=== PATIENT | male | born 1955 | race Caucasian/White ===

== ENCOUNTER 2017-03-29 23:25 | Emergency (ER) | payer BC ==
--- NOTE | ~2017-03-29 | EKG ---
PATIENT: SYLVESTER CLARK UNIT #: [id number] Ventricular Rate: 73 BPM Atrial Rate: 73 BPM P-R Interval: 174 ms QRS Duration: 84 ms Q-T Interval: 394 ms QTC Calculation(Bezet): 434 ms P Cherokee: 52 degrees Calculated R Cherokee: 29 degrees Calculated T Cherokee: 41 degrees Diagnosis Line: Normal sinus rhythm Diagnosis Line: Normal ECG Diagnosis Line: When compared with ECG of 30-MAR-2017 04:36, Diagnosis Line: (unconfirmed) Diagnosis Line: Criteria for Septal infarct are no longer Present Diagnosis Line: Confirmed by STEPHANIE VORA MD ([id number]) on Diagnosis Line: 03/30/2017 1:33:52 PM INTERPRETING MD: DIONY PHILLIPS
--- NOTE | ~2017-03-29 | CR72 ---
[facility] A Service of [facility] & [facility] RADIOLOGY TEXT RESULTS PATIENT: SYLVESTER CLARK LOCATION: [facility] : 57 UNIT #: [id number] AGE: [address]: Garcia Hilton DO SEX: M ORDER DR: [id number] [facility] [address] [place], [place] [address] [id number] MR#: [id number] Acc #: [id number] NAME: SYLVESTER CLARK : 1955 SEX: M STUDY DATE/TIME: 03/30/2017 04:41 UNIT: [facility] ROOM: STUDY DESCRIPTION: CR Chest Single View Portable Attending Physician: Garcia Hilton D.O. Ordering Physician: Garcia Hilton D.O. Primary Care Physician: Carlitos Dowling M.D. MEDICAL IMAGING REPORT This report is preliminary unless electronic signature is present EXAM Portable chest 03/30 at 0441. INDICATIONS Shortness of air and left side chest pain for 1-2 days. FINDINGS A single AP portable view of the chest shows both lungs to be clear. The heart is normal in size. The mediastinal contour is normal. No significant bone abnormalities are seen. IMPRESSION Normal portable chest. Dictated by... Jamaal Moreno Jr., M.D. THIS IS AN ELECTRONICALLY VERIFIED REPORT Jamaal Moreno Jr., M.D. at 03/30/2017 7:22 PM LINUS/dina TD: 03/30/2017 08:01 JOB #: [id number] MEDICAL IMAGING REPORT Page 1 of 1 COPY
--- NOTE | ~2017-03-29 | CT71 ---
[facility] Service of [facility] RADIOLOGY TEXT RESULTS PATIENT: SYLVESTER CLARK LOCATION: [facility] : 57 UNIT #: [id number] AGE: [address]: Garcia Hilton DO SEX: M ORDER DR: [id number] [facility] [address] [facility]. [place], [place] [address] [id number] E MR#: [id number] Acc #: [id number] NAME: SYLVESTER CLARK : 1955 SEX: M STUDY DATE/TIME: 03/30/2017 03:16 UNIT: [facility] ROOM: STUDY DESCRIPTION: CT Head Wo Contrast Attending Physician: Garcia Hilton D.O. Ordering Physician: Garcia Hilton D.O. Primary Care Physician: Carlitos Dowling M.D. MEDICAL IMAGING REPORT This report is preliminary unless electronic signature is present EXAM Head CT 03/30/2017 03:16 INDICATION Headache with visual changes for 1 day. No trauma. COMPARISON None. FINDINGS Axial images were obtained from the base to the vertex without contrast. This CT examination was performed with one or more of the following radiation dose reduction techniques: automatic exposure control, adjustment of mA and/or kV according to patient size, and iterative reconstruction. There is mild generalized atrophy. Ventricular size and configuration are within normal limits. Chronic small vessel ischemic changes are present in the white matter. No acute infarct or hemorrhage. No masses. No skull fractures. IMPRESSION No acute abnormality. Dictated by... Jamaal Moreno Jr., M.D. THIS IS AN ELECTRONICALLY VERIFIED REPORT Jamaal Moreno Jr., M.D. at 03/30/2017 7:22 PM LINUS/ramesh TD: 03/30/2017 07:54 JOB #: [id number] [facility] Service of [facility] RADIOLOGY TEXT RESULTS PATIENT: SYLVESTER CLARK LOCATION: [facility] : 57 UNIT #: [id number] AGE: [address]: Garcia Hilton DO SEX: M ORDER DR: MEDICAL IMAGING REPORT Page 1 of 1 COPY
[2017-03-30 02:21] LABS: BASOPHIL% 0.5 % (0-2.5); EOSINOPHIL% 0.4 % (0.0-7.0); HEMATOCRIT 48.2 % (38.0-50.0); HEMOGLOBIN 16.2 gm/dL (13.0-16.0); LYMPHOCYTE# 1.5 X10e3 (1.0-3.5); LYMPHOCYTE% 16.4 % (17.0-45.0); MEAN CELL VOLUME 91.4 FL (83-96); MEAN CORPUSCULAR HEMOGLOBIN 30.7 PG (28-34); MEAN CORPUSCULAR HGB CONC 33.7 g/dL (30-36); MEAN PLATELET VOLUME 7.9 FL (6.5-11.5); MONOCYTE# 0.5 X10e3 (0-1.0); MONOCYTE% 5.6 % (3.0-12.0); NEUTROPHIL% 77.1 % (40-75); PLATELET COUNT 249 X10e3 (140-420); RED BLOOD COUNT 5.28 X10e (3.90-5.60); RED CELL DISTRIBUTION WIDTH 12.7 % (11.0-15.5); WHITE BLOOD COUNT 9.1 X10e3 (4.0-10.5)
[2017-03-30 02:22] LABS: DIFF IND NO
[2017-03-30 02:43] LABS: ALBUMIN SERUM 4.5 g/dL (3.5-5.0); BILIRUBIN,TOTAL 0.9 mg/dL (0.2-2.0); CALCIUM SERUM 9.3 mg/dL (8.4-10.2); GLOM FILT RATE Estimated 81.5 mL/min (>60); POTASSIUM 4.2 mmol/L (3.5-5.1)
[2017-03-30 04:54] LABS: POC - CKMB 1.1 ng/mL (0.0-7.9); POC - TROPONIN <0.05 ng/mL (<=0.05)
[2017-03-30 04:55] LABS: POC - CKMB <1.0 ng/mL (0.0-7.9); POC - TROPONIN <0.05 ng/mL (<=0.05)
== END 2017-03-30 05:55 | disposition home or self-care (01) ==
LOC: CED 23:25 → CFTX 23:50 → CED 03-30 05:55
PROVIDERS: Emergency Medicine
DX: R51 Headache (principal); I10 Essential (primary) hypertension
CPT/HCPCS: 36415; 70450; 71010; 80053; 82553; 83880; 84484; 85025; 85652; 86140; 93005; 96374; 96375; 99285; J1100; J1200; J2765

== ENCOUNTER 2017-04-10 12:00 | Inpatient (IN) | payer BC ==
[~2017-04-10] VITALS: Ht 177.8 cm; Wt 60.3 kg
--- NOTE | ~2017-04-10 | PN ---
Unit #: [id number] #: [id number] Patient: JESUS GUNN [id number] [facility] [address] [place] [address] [id number] I MR#: [id number] NAME: JESUS GUNN ROOM: P261 Age: 61 Sex: M Admission Date: 04/10/2017 : 1955 Attending Physician: Apolinar Mcfarlane M.D. Admitting Physician: Apolinar Mcfarlane M.D. Primary Care Physician: Darci Holly PROGRESS NOTES DATE 04/17/2017 DISCUSSION Jesus continues to appear ill. He has decreased oral intake and appears a little unsteady on his feet today. It is difficult to assess his mood due to his soft and mumbled speech. Vital signs are also mildly decreased this morning. Later in the day, the patient's condition continued to deteriorate and I felt it was inappropriate for him to remain here, feeling that he had developed a medical condition that required further intervention. ASSESSMENT Major depression with psychotic features. PLAN The patient was transferred to [facility] for medical evaluation. Dictated by... Apolinar Mcfarlane M.D. [facility]/dzh TD: 04/19/2017 18:02 JOB #: [id number] [facility] PROGRESS NOTES Page 1 of 1 X Apolinar Mcfarlane MD X PROGRESS NOTE
--- NOTE | ~2017-04-10 | PN ---
Unit #: [id number] #: [id number] Patient: JESUS GUNN [id number] [facility] [address] [place] [address] [id number] I MR#: [id number] NAME: JESUS GUNN ROOM: P261 Age: 61 Sex: M Admission Date: 04/10/2017 : 1955 Attending Physician: Apolinar Mcfarlane M.D. Admitting Physician: Apolinar Mcfarlane M.D. Primary Care Physician: Darci Holly PROGRESS NOTES DATE 04/15/2017 DISCUSSION Jesus is sitting quietly in the dayroom this morning. He appears mildly confused and his speech is soft and mumbled. He is alert and fully oriented and he appears to be mildly confused or psychotic. ASSESSMENT Major impression with psychotic features. PLAN Will continue to closely monitor the patient and treat as appropriate. Dictated by... Darci BanksH/dzh TD: 04/19/2017 22:25 JOB #: [id number] [facility] PROGRESS NOTES Page 1 of 1 X Apolinar Mcfarlane MD X PROGRESS NOTE
--- NOTE | ~2017-04-10 | PA ---
Unit #: [id number] #: [id number] Patient: JESUS CLARK [id number] [place] [address] [id number] I MR#: [id number] NAME: JESUS CLARK. ROOM: P261 Age: 61 Sex: M Admission Date: 04/10/2017 : 1955 Date of Assessment: 04/11/2017 Attending Physician: Apolinar Mcfarlane M.D. Admitting Physician: Apolinar Mcfarlane M.D. Primary Care Physician: Carlitos Dowling M.D. PSYCHIATRIC ASSESSMENT DATE OF SERVICE 04/11/2017. INFORMANTS The patient, reliable; OLOP, reliable. CHIEF COMPLAINT Psychosis. HISTORY OF PRESENT ILLNESS Jesus is a 61-year-old man, whose family reported that a week ago he began to believe that he is liable to arrest, that his bank account was frozen, that he has been increasingly hopeless and helpless, and said the police are coming after him for unknown reasons. He has been depressed, but this is the first time he has spoken of psychiatric symptoms in this way. He made plans for his demise with family members and their concern brought him to the hospital where he has been admitted for stabilization. PAST PSYCHIATRIC HISTORY Family denies any previous inpatient psychiatric treatment or outpatient care. He is not currently taking psychiatric medications. FAMILY PSYCHIATRIC HISTORY The patient's maternal grandmother was admitted to this facility as well as 2 of aunts, they also received electroconvulsive therapy. He reports that mental illness runs on both sides of his family. He denies any history of chemical dependence in his family. SOCIAL HISTORY The patient denies any history of childhood abuse or neglect. He is a heterosexual man with no current legal issues despite his assertions. He is a high-school graduate, who has worked as a instructional technology teacher and has no problems related to the job. He reported that his mother recently and they sold her home about 6 weeks ago. PAST MEDICAL HISTORY Significant for hypertension, mitral valve prolapse, and history of elevated liver enzymes. MEDICATIONS Please see MAR. ALLERGIES Unit #: [id number] #: [id number] Patient: JESUS CLARK No known medication allergies. SUBSTANCE USE HISTORY None reported. MENTAL STATUS EXAMINATION Jesus presented as a thin man, who appeared older than his stated age. He was quiet, but cooperative with the examination. His speech was soft, sparse, and occasionally hard to understand. Musculoskeletal examination was calm. His mood was depressed with a decreased range of affect. He was alert and fully oriented. His memory and concentration were intact. His thought processes were logical, but he appears to be somewhat paranoid and may be responding to internal stimuli that he would not admit. He continues to report suicidal ideation with no specific plan or intent. Insight and judgment, fair. Fund of knowledge and abstraction, fair. ASSETS AND LIABILITIES The patient knows local resources, has supportive family, and is voluntary for treatment. Liabilities include lack of current treatment, plan for psychiatric illness, and sudden change of mental status. ADMITTING DIAGNOSES AXIS I: Major depression with psychotic features, F33.3. AXIS II: No diagnosis. AXIS III: Hypertension, report of "pancreatitis." AXIS IV: AXIS V: PSYCHIATRIC PLAN The patient was admitted and placed on suicide precautions. We will add Zyprexa with an increased dose of 10 mg at bedtime for psychosis and we will begin antidepressant treatment with Zoloft 50 mg daily. His medical conditions will be determined by outpatient pharmacy and medications continued. He will enroll in dual diagnosis of groups and activities. A physical examination and laboratory studies will be ordered and reviewed. TREATMENT GOALS Resolution of SI, improvement in mood, improvement in insight, and improvement in coping skills. DISCHARGE PLANNING Follow up with primary care physician and community mental health. ESTIMATED LENGTH OF STAY 5 days. Dictated by... Apolinar Mcfarlane M.D. YA/swathi TD: 04/13/2017 05:51 JOB #: [id number] Unit #: [id number] #: [id number] Patient: JESUS CLARK PSYCHIATRIC ASSESSMENT Page 1 of 1 X Apolinar Mcfarlane MD PSYCHIATRIC ASSESSMENT
--- NOTE | ~2017-04-10 | HP ---
Unit #: [id number] #: [id number] Patient: JESUS CLARK [id number] [place] [address] [id number] I MR#: [id number] NAME: JESUS CLARK. ROOM: 61 Age: 61 Sex: M Admission Date: 04/10/2017 : 1955 Attending Physician: Apolinar Mcfarlane M.D. Admitting Physician: Apolinar Mcfarlane M.D. Primary Care Physician: Carlitos Dowling M.D. HISTORY AND PHYSICAL HISTORY OF PRESENT ILLNESS Jesus is a 61 year old admitted to [address] [place] [address] with psychotic behavior. Patient's reports that he has been observed talking to external stimuli. He is a poor historian so his history is taken from his chart. PAST MEDICAL HISTORY High blood pressure. PAST SURGICAL HISTORY Nothing reported. ALLERGIES No known drug allergies. SOCIAL HISTORY He denies cigarettes, alcohol and illicit drug use. FAMILY HISTORY Medically noncontributory. REVIEW OF SYSTEMS He does not answer questions appropriately. There are no reports of nausea, vomiting or diarrhea. He has had no cough or increased temperature. CURRENT MEDICATIONS 1. Zyprexa 5 mg q h.s. 2. Milk of Magnesia p.r.n. 3. Maalox p.r.n. 4. Tylenol p.r.n. 5. Inderal 20 mg t.i.d. 6. Protonix 40 mg q day 7. HCTZ 12.5 mg q day 8. Zestril 10 mg q day PHYSICAL EXAMINATION GENERAL: Alert, well-nourished, in no apparent distress. VITAL SIGNS: Blood pressure 150/98, heart rate 80, respirations 16, temperature 98.6. WEIGHT: 133 pounds. HEIGHT: 5'10". SKIN: Warm and dry without rash or lesion. Unit #: [id number] #: [id number] Patient: JESUS CLARK HEENT: Normocephalic. TMs not viewed. Oral and nasal passages clear. Conjunctivae clear. Pupils equal, round and reactive to light and accommodation. Extraocular movements intact. NECK: Supple without lymphadenopathy or thyromegaly. HEART: Regular rate and rhythm without murmur. LUNGS: Clear. ABDOMEN: Soft, nontender. : Not done. EXTREMITIES: No evidence of cyanosis, clubbing or edema. Moves all extremities without focal deficit. NEUROLOGICAL: Grossly within normal limits. Cranial Nerves: II: Visual winston are intact. III, IV AND : Extraocular movements are intact. Pupils are equal, round and reactive to light. V: Facial sensation is grossly normal. VII: Facial movements and expression are normal. VIII: Auditory acuity grossly intact. IX, X: Uvula is midline. Phonation is normal. XI: Patient shrugs shoulders and turns head normally. XII: Tongue protrudes in the midline. Sensory and Motor Function: Sensory and motor sensation is grossly normal. Motor: moves all extremities well. Coordination: Gait is normal. Deep Tendon Reflexes: Intact. IMPRESSION 1. Psychiatric admission. 2. High blood pressure, not controlled on admission. 3. The patient is very thin for his height. RECOMMENDATIONS PSYCHIATRIC: Per psychiatrist. MEDICAL: 1. I see no contraindications to participating in facility's activities. 2. Continue HCTZ and Zestril. 3. Ensure 1 bottle with each meal and at bedtime. MEDICAL PROGNOSIS Good. MEDICAL CONDITION Stable. Dictated by... Kasey Han/alex TD: 04/11/2017 04:20 JOB #: [id number] Unit #: [id number] #: [id number] Patient: JESUS CLARK HISTORY AND PHYSICAL Page 1 of 1 X Carolina Tolliver X HISTORY AND PHYSICAL
--- NOTE | ~2017-04-10 | A ---
[facility] Nutrition Therapy DATE: 04/12/17 Patient: SYLVESTER ROJASPEDRO Physician: GARY Address: [address] Room/Bed: [address], Zip: [place] [address] Admit Date: 04/10/17 Date of : [birth year] Height: 5 10 Weight: 132 60.250438 NUTRITIONAL ASSESSMENT: REASON: CONSULT "PATIENT IS UNDERWEIGHT" PATIENT ADMITED FOR SI, DEPRESSION, ANXIETY, PSYCHOTIC BEHAVIORS PMH: HTN, GERD Anthropometrics: HT: 70", WT: 133#, BMI: 19.1 Labs: 04/11/17- NA: 130 ALL OTHER NUTRITIONAL LABS WNL Meds: ZOLOFT, ZYPREXA, CREON, PROTONIX, HCTZ, ZESTRIL Assessment: PATIENT IS A 61 Y/O MALE ADMITTED FOR SI, DEPRESSION, ANXIETY, AND PSYCHOTIC BEHAVIORS. PATIENT IS CURRENTLY EMPLOYED, LIVES WITH HIS , AND DENIES ANY SUBSTANCE ABUSE. PER MD NOTES, PATIENT IS A POOR HISTORIAN AND HE DOES NOT ANSWER QUESTIONS APPROPRIATELY. UPON ADMIT PATIENT STATED A POOR APPETITE/NOT EATING, WITH A 16# WEIGHT LOSS OVER LAST 2-3 MONTHS, AND HE IS NOT SLEEPING (2-3 HOURS/NIGHT). WEIGHT HX PER [facility] SHOWS A WEIGHT OF 137# ON 03/29/17, WHICH IS A 4# WEIGHT LOSS X 2 WEEKS. NURSING REPORTS PATIENT HAS SOME C/O CONSTIPATION, HE HAS COME OUT OF HIS ROOM FOR MEALS, HE HAS AN ADEQUATE APPETITE, AND HE HAS REQUESTED EXTRA SNACKS AT TIMES. CURRENT PSYCH MEDS AND HCTZ MAY CAUSE WEIGHT AND APPETITE FLUCTUATIONS. THERE IS NO SKIN BREAKDOWN NOTED ATT. PATIENT'S BMI IS WITHIN A HEALTHY RANGE OF 19-25, HOWEVER HE IS 80% OF IS IBW. PATIENT IS ON A REGULAR DIET AND MD ORDERED ENSURE WITH ALL MEALS AND AT BEDTIME. PATIENT DID NOT SCORE ANY NUTRITIONAL RISK POINTS. Dx: INADEQUATE NUTRIENT INTAKE R/T CURRENT CONDITION, PSYCHOSIS AEB SELF-REPORTED WEIGHT LOSS AND DECREASED APPETITE, <90% IBW Intervention: REGULAR DIET, ENSURE QID, MEDS PER MD, PSYCH Monitoring, Evaluation and Goals: 1. ADEQUATE PO INTAKES >50% OF MEALS 2. PREVENT, CORRECT MICRO/MACRO NUTRIENT DEFICIENCIES 3. WEIGHT; PREVENT FURTHER WEIGHT LOSS MONITOR: WEIGHTS, LABS, PO/FLUID INTAKES Recommendations: 1. CONTINUE REGULAR DIET AND ENSURE QID TOLERATED. OFFER SNACKS BETWEEN MEALS [facility] Nutrition Therapy DATE: 04/12/17 Patient: SYLVESTER CLARK Physician: GARY Address: [address] Room/Bed: P261-[address] [facility], Zip: [place] [address] Admit Date: 04/10/17 Date of : [birth year] Height: 5 10 Weight: 132 60.858509 2. ENCOURAGE ADEQUATE KCAL AND PROTEIN INTAKES 3. WEIGH PATIENT ROUTINELY (EVERY 3-4 DAYS) 4. WILL CONTINUE TO MONITOR WEIGHT AND PO INTAKES RD TO F/U PER PROTOCOL AND PRN R/T PATIENT MILDLY COMPROMISED Respectfully, NATALIA HURTADO, PRO, LD [facility] cc: client file
--- NOTE | ~2017-04-10 | DS ---
Unit #: [id number] #: [id number] Patient: JESUS GUNN [id number] [facility] [address] [place] [address] [id number] MR#: [id number] NAME: JESUS GUNN ROOM: P261 Age: 61 Sex: M Admission Date: 04/10/2017 : 1955 Discharge Date: 04/17/2017 Attending Physician: Apolinar Mcfarlane M.D. Primary Care Physician: Carlitos Dowling M.D. DISCHARGE SUMMARY REASON FOR ADMISSION Jesus is a 61-year-old man, whose family reports that about a week ago, he began acting "strange" with paranoia, decreased affective range, thoughts of hopelessness and helplessness, and talk of dying. He was admitted for stabilization. DIAGNOSTIC STUDIES LABORATORY RESULTS: Please see hospital chart. HOSPITAL COURSE Jesus was admitted and placed on suicide precautions. He appeared somewhat ill and cachectic, but initial tests for pancreatitis and other conditions were unremarkable. He started on an antidepressant and antipsychotic medications, as he appeared to have some psychotic features to his depression. He participated as he could in unit groups and activities, but appeared to have some confusion at times. During my assessment on 04/17, the patient appeared increasingly ill and had difficulty standing appropriately. Vital signs were decreased and staff noted that the patient also had decreased oral intake for both fluids and food. A referral was made to [facility], where the patient was seen in the emergency room and determined to have some clinical dehydration. He was therefore admitted to that facility and discharged from [facility]. 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 AXIS II: No diagnosis. AXIS III: Acute dehydration and history of pancreatitis. AXIS IV: AXIS V: DISCHARGE INSTRUCTIONS The patient is to follow up with attending physician at [facility]. DISCHARGE MEDICATIONS No prescriptions were written due to the emergency nature of the patient's discharge. CONDITION AT DISCHARGE Unit #: [id number] #: [id number] Patient: JESUS GUNN Decompensated. PROGNOSIS Good. DIET AND ACTIVITY Per attending physician. Dictated by... Apolinar Mcfarlane M.D. [facility]/modl TD: 04/19/2017 09:37 JOB #: [id number] DISCHARGE SUMMARY Page 1 of 1 X Apolinar Mcfarlane MD DISCHARGE SUMMARY
[2017-04-11 09:43] LABS: BASOPHIL% 0.2 % (0-2.5); EOSINOPHIL% 0.4 % (0.0-7.0); HEMATOCRIT 43.3 % (38.0-50.0); HEMOGLOBIN 15.1 gm/dL (13.0-16.0); LYMPHOCYTE% 9.8 % (17.0-45.0); MEAN CELL VOLUME 89.4 FL (83-96); MEAN CORPUSCULAR HEMOGLOBIN 31.2 PG (28-34); MEAN CORPUSCULAR HGB CONC 34.9 g/dL (30-36); MEAN PLATELET VOLUME 8.1 FL (6.5-11.5); MONOCYTE# 1.2 X10e3 (0-1.0); MONOCYTE% 10.9 % (3.0-12.0); NEUTROPHIL# 8.4 X10e3 (1.5-7.1); NEUTROPHIL% 78.7 % (40-75); PLATELET COUNT 280 X10e3 (140-420); RED BLOOD COUNT 4.84 X10e (3.90-5.60); WHITE BLOOD COUNT 10.7 X10e3 (4.0-10.5)
[2017-04-11 09:53] LABS: DIFF IND NO
[2017-04-11 10:54] LABS: ALBUMIN SERUM 4.1 g/dL (3.5-5.0); BILIRUBIN,TOTAL 1.2 mg/dL (0.2-2.0); BUN/CREATININE RATIO 13.63; CALCIUM SERUM 9.8 mg/dL (8.4-10.2); CREATININE SERUM 1.1 mg/dL (0.6-1.4); GLOM FILT RATE Estimated 72.6 mL/min (>60); POTASSIUM 4.2 mmol/L (3.5-5.1); PROTEIN TOTAL SERUM 7.1 g/dL (6.0-8.3)
[2017-04-12 09:51] LABS: AMYLASE 51 U/L (0-46); LIPASE 32 U/L (22-51)
[2017-04-14 09:41] LABS: URINE APPEARANCE CLEAR; URINE BILIRUBIN NEG (NEG); URINE BLOOD NEG (NEG); URINE COLOR YELLOW; URINE GLUCOSE NEG (NEG); URINE KETONE TRACE (NEG); URINE LEUKOCYTE ESTERASE NEG (NEG); URINE NITRATE NEG (NEG); URINE PROTEIN NEG (NEG); URINE UROBILINOGEN 0.2 MG/DL (NEG)
[2017-04-14 10:32] LABS: AMPHETAMINE NEG (NEG); BARBITURATES NEG (NEG); BENZODIAZEPINES NEG (NEG); COCAINE NEG (NEG); MARIJUANA NEG (NEG); OPIATES NEG (NEG); TRICYCLIC ANTIDEPRESSANTS NEG (NEG); U METHADONE NEG (NEG)
[2017-04-17] MEDS ORDERED: ZESTRIL10 M1 PO (22:54)
[2017-04-17] MEDS ORDERED: INDERAL20 MG PO (22:54)
[2017-04-17] MEDS ORDERED: HCTZ PO (22:55)
[2017-04-17] MEDS ORDERED: PROTONIX40 M1 PO (22:55)
[2017-04-17] MEDS ORDERED: CREON DR 12,001 EAC2 PO (22:56)
[2017-04-17] MEDS ORDERED: ZYPREXA10 MG PO (22:56)
[2017-04-17] MEDS ORDERED: ZOLOFT100 MG PO (22:57)
== END 2017-04-17 22:30 | DRG 885 ==
LOC: P2L 15:37
PROVIDERS: Psychiatry & Neurology Psychiatry
DX: F33.3 Major depressive disorder, recurrent, severe with psychotic symptoms (principal); I10 Essential (primary) hypertension; I34.1 Nonrheumatic mitral (valve) prolapse
CPT/HCPCS: 80053; 80307; 81003; 82150; 83690; 85025

== ENCOUNTER 2017-04-17 16:27 | Inpatient (IN) | payer BC ==
[~2017-04-17] VITALS: Ht 177.8 cm; Wt 59.2 kg
--- NOTE | ~2017-04-17 | FU ---
[facility] Nutrition Therapy DATE: 04/27/17 Patient: SYLVESTER Hanna JAIMEURE Physician: ANA Address: [address] Room/Bed: [address] [place] [address], Zip: [place] [address] Admit Date: 04/17/17 Date of : [birth year] Height: 5 10 Weight: 138 62.6 NUTRITION MONITORING/FOLLOW-UP: Reason: PT SEEN FOR FOLLOW-UP DX: DEHYDRATION, ABD PAIN, ANOREXIA Anthropometrics: 5'10", WT: 138# (62.7 KG), BMI: 17.7 -ADMIT WEIGHT: 125# (56.8 KG) Labs: CA+:7.7, ALB: 1.8 (04/20/17) Meds: REMERON, KCL, PROTONIX, THIAMINE, THERAPEUTIC FORMULA, CREON 12, ZOFRAN, MIRALAX I&O's: 6080/1990 Skin: (R) FOOT ABSCESS-PREVIOUSLY NOTED Assessment: CHART REVIEWED AND EVENTS NOTED. PT SEEN FOR FOLLOW-UP. PT REPORTS FAIR PO INTAKE AND APPETITE. PT STATES HE SKIPPED BREAKFAST 2' "NOT BEING HUNGRY" BUT NOTED EATING 100% DINNER LAST NIGHT, ADDS "MY APPETITE COMES AND GOES". OF NOTE, PT TO HAVE A FLAT AFFECT AND SAD MOOD. THIS RD ENCOURAGED ADEQUATE KCAL AND PROTEIN INTAKE, PT AGREED AND NOTES HE DRINKS ENSURE SHAKES HERE AT [facility]. PT REPORTED NO DIET QUESTIONS AT THIS VISIT. RD TO CONTINUE TO FOLLOW. Dx: UNINTENTIONAL WEIGHT LOSS R/T DECREASED PO INTAKE & APPETITE, ABD DISCOMFORT, PMH AEB PT REPORT, NOTING 12.5% SEVERE WEIGHT LOSS IN PAST 2-3 MONTHS (16#), LOW BMI (17.9), 75%IBW, PT APPEARING CACHECTIC.-ACTIVE Intervention: 1. REGULAR DIET + 6 SMALL MEALS 2. ENSURE SHAKES TID Monitoring, Evaluation and Goals: 1. ORAL INTAKE; CONSUME/TOLERATE >50% OF MEALS AND SUPPLEMENTS-IN PROGRESS 2. WEIGHTS; PROMOTE GRADUAL WEIGHT GAIN; PREVENT WEIGHT LOSS-IN PROGRESS 3. LABS; WNL-MET/IN PROGRESS 4. SKIN; PROMOTE SKIN HEALING-IN PROGRESS MONITOR: -PO INTAKE/APPETITE -WEIGHTS -SUPPLEMENT INTAKE Recommendations: 1. APPRECIATE FAMILY AND STAFF TO CONTINUE TO ENCOURAGE ADEQUATE PO INTAKE [facility] DATE: 04/27/17 Patient: SYLVESTER Hanna LUIS A Physician: ANA Address: [address] Room/Bed: [address] [place] [address], Zip: [place] [address] Admit Date: 04/17/17 Date of : [birth year] Height: 5 10 Weight: 138 62.6 2. CONTINUE OBTAINING WEIGHTS q 3 DAYS FOR MONITORING PURPOSES RD WILL F/U PER PROTOCOL PT IS MODERATELY COMPROMISED Respectfully, CORBY RODRIGUEZ MS, RD, LD [facility] Nutrition[facility] cc: client file
--- NOTE | ~2017-04-17 | CR142 ---
[facility] A Service of [facility] & [facility] RADIOLOGY TEXT RESULTS PATIENT: SYLVESTER GUNN LOCATION: [place] [address] : 57 UNIT #: [id number] AGE: [address]: MARK WARNER V SEX: M ORDER DR: [id number] [facility] [address] [facility]. [place], [place] [address] [id number] I MR#: [id number] Acc #: [id number] NAME: SYLVESTER GUNN : 1955 SEX: M STUDY DATE/TIME: 04/24/2017 12:06 UNIT: [facility] ROOM: [facility] STUDY DESCRIPTION: CR Hand Min 3 Views Rt Attending Physician: Mark Warner M.D. Ordering Physician: Mark Warner M.D. Primary Care Physician: Carlitos Dowling M.D. MEDICAL IMAGING REPORT This report is preliminary unless electronic signature is present EXAM Right hand 3 views, 04/24/2017 1206 hours HISTORY Pain and swelling of the right hand and wrist for 1 day. No known injury. COMPARISON None. FINDINGS AP, lateral and oblique views demonstrate dorsal soft tissue swelling over the carpal bones and metacarpals. There is no fracture, dislocation or foreign body. IMPRESSION Dorsal soft tissue swelling over the carpus and metacarpals. No fracture, dislocation or foreign body seen. Dictated by... Razia Montgomery M.D. THIS IS AN ELECTRONICALLY VERIFIED REPORT Razia Montgomery M.D. at 04/25/2017 9:11 AM GUILLERMO/gloria TD: 04/24/2017 21:42 JOB #: [id number] MEDICAL IMAGING REPORT Page 1 of 1 COPY
--- NOTE | ~2017-04-17 | CR282 ---
[facility] A Service of [facility] RADIOLOGY TEXT RESULTS PATIENT: SYLVESTER GUNN LOCATION: [place] [address] : 57 UNIT #: [id number] AGE: [address]: MARK WARNER V SEX: M ORDER DR: [id number] [place] [id number] [facility]. [place], [place] [address] [id number] I MR#: [id number] Acc #: [id number] NAME: SYLVESTER GUNN : 1955 SEX: M STUDY DATE/TIME: UNIT: [facility] ROOM: [facility] STUDY DESCRIPTION: CR Wrist Min 3 View Rt Attending Physician: Mark Warner M.D. Ordering Physician: Mark Warner M.D. Primary Care Physician: Carlitos Dowling M.D. MEDICAL IMAGING REPORT This report is preliminary unless electronic signature is present EXAM Right wrist 3 views 04/24/2017 1205 hours HISTORY Patient complains of 1-day history of pain and swelling of the right hand and wrist. No known injury. FINDINGS AP, lateral and oblique views of the wrist demonstrate mild diffuse soft tissue swelling over the hand and wrist with no fracture, dislocation or foreign body. IMPRESSION Diffuse soft tissue swelling with no fracture, dislocation or foreign body. Dictated by... Razia Montgomery M.D. THIS IS AN ELECTRONICALLY VERIFIED REPORT Razia Montgomery M.D. at 04/25/2017 9:11 AM GUILLERMO/trav TD: 04/24/2017 22:02 JOB #: [id number] MEDICAL IMAGING REPORT Page 1 of 1 COPY
--- NOTE | ~2017-04-17 | EKG ---
PATIENT: SYLVESTER GUNN UNIT #: [id number] Ventricular Rate: 70 BPM Atrial Rate: 70 BPM P-R Interval: 172 ms QRS Duration: 88 ms Q-T Interval: 408 ms QTC Calculation(Bezet): 440 ms P [place]: 57 degrees Calculated R [place]: 51 degrees Calculated T [place]: 48 degrees Diagnosis Line: Normal sinus rhythm Diagnosis Line: Normal ECG Diagnosis Line: When compared with ECG of 27-APR-2017 18:27, Diagnosis Line: (unconfirmed) Diagnosis Line: No significant change was found Diagnosis Line: Confirmed by RAIN RIVERA MD ([id number]) on 04/28/2017 Diagnosis Line: 5:15:00 PM INTERPRETING MD: NICOLE PHILLIPS
--- NOTE | ~2017-04-17 | CO ---
Unit #: [id number] #: [id number] Patient: SYLVESTER ABBOTT [id number] [address] [address] [id number] I MR#: [id number] NAME: SYLVESTER ABBOTT ROOM: 557 Age: 61 Sex: M Admission Date: 04/17/2017 : 1955 Attending Physician: Sang Orozco M.D. Primary Care Physician: Carlitos Dowling M.D. Consultation Date: 04/18/2017 CONSULTATION REPORT REASON FOR CONSULTATION Acute kidney injury. HISTORY OF PRESENT ILLNESS Mr. Abbott is a pleasant, but depressed, 61-year-old male who we were asked to see for acute kidney injury. The patient was admitted to [facility] on 04/10/2017 with relatively normal appearing kidney function and had been treated there for major depressive disorder with some psychosis. The patient was transferred over to [facility] because of generalized weakness and anorexia. There was a concern about poor p.o. intake and weight loss. The patient had repeat blood work in the emergency room that showed acute kidney injury, prompting our consultation today. The patient states that he has just not been hungry. He has had some nausea, but no real vomiting or diarrhea. His CT scan that was done did show some urine retention, but bladder scan on the floor thus far has been negative after voiding. The patient denies the use of any NSAIDs at home. He has no history of kidney stones. No swelling. He denies any urinary complaints. He has had positive blood cultures with questionable source as he has not been otherwise symptomatic. PAST MEDICAL HISTORY 1. Major depressive disorder with psychosis. 2. Hypertension. 3. Mitral valve prolapse. 4. History of pancreatitis. 5. Elevated liver function tests. PAST SURGICAL HISTORY 1. Appendectomy. 2. Varicocele. SOCIAL HISTORY The patient is . He is a former smoker. He used to drink alcohol on the weekends. No drug use. FAMILY HISTORY Significant for depression and psychiatric disease with electroshock therapy. No family history of kidney failure. He says his mother did have to have a kidney removed for unclear reasons. ALLERGIES No known drug allergies. HOME MEDICATIONS Unit #: [id number] #: [id number] Patient: SYLVESTER ABBOTT 1. Propranolol 20 mg t.i.d. 2. Lisinopril 10 mg daily. 3. HCTZ 12.5 mg daily. 4. Protonix 40 mg daily. 5. Zyprexa 10 mg at bedtime. 6. Creon 2 tablets t.i.d. 7. Zoloft 100 mg daily. 8. P.r.n. medications. REVIEW OF SYSTEMS A complete 12-point review of systems was attempted, but made difficult due to his depression and general fatigue and quietness. He denies any headaches or dizziness. I do not see any documented fevers or chills. No nose bleed or sore throat. No earache. Denies chest pain or palpitations. No cough or hemoptysis. No bright red blood per rectum or melena. No dysuria or hematuria. No swelling. No rashes. No itching. No flank pain. No night sweats or hot flashes. No intolerance to heat or cold. No bleeding issues. He has lost weight. Denies pain issues. Unless otherwise indicated, review of systems was negative. PHYSICAL EXAMINATION GENERAL: This is a pleasant 61-year-old male, very quiet with a flat affect and no acute distress. VITALS: Afebrile, pulse 97, respiratory rate 16, blood pressure 165/89, has been as high as 181/81 today. HEENT: Head is atraumatic, normocephalic. Eyes show pink conjunctivae with no scleral icterus. No nasal drainage. No nose bleed. Oropharynx is slightly dry. No thrush. NECK: No rigidity. No jugular venous distension. LUNGS: Clear with no wheezing or rhonchi. Breathing is nonlabored. HEART: Regular rate and rhythm with no murmur or rub appreciated. ABDOMEN: Thin and soft. There are bowel sounds present. No masses appreciated. EXTREMITIES: No lower extremity cyanosis or pitting edema. SKIN: Dry without rashes. MUSCULOSKELETAL: No joint effusions noted. No CVA tenderness to palpation. NEUROLOGIC: Cranial nerves are grossly intact with some mild generalized weakness without focal deficit. LYMPH: There is no neck, cervical lymphadenopathy. PSYCHIATRIC: Mood appears depressed. He does have a flat affect. DIAGNOSTIC STUDIES IMAGING: Chest x-ray done showed no active disease. CT of the head was done with some mild generalized atrophy. No acute changes. CT of the abdomen and pelvis was done this morning without contrast. It showed some mild perinephric stranding, otherwise kidneys were unremarkable. No acute findings. The bladder was distended. LABORATORY: TSH was normal. C-reactive protein was high at 20. Blood cultures from last night showed 2 out of 2 sets with gram positive cocci in clusters. Troponin was negative. Urinalysis yesterday showed 1+ protein, no blood, with some hyaline casts. Ammonia was normal. Lactic acid level was normal. CPK normal. Admission chemistry yesterday showed a sodium of 134, potassium 3.8, chloride 98, bicarb 27, glucose 118, BUN Unit #: [id number] #: [id number] Patient: SYLVESTER ABBOTT 78, creatinine 1.6. AST and ALT high at 48 and 57 respectively. CBC showed a white blood cell count of 21,000, hemoglobin 11.9, platelet count 293 with a left shift and no peripheral eosinophilia. Urine drug screen at [facility] was negative. [facility]inalysis at [facility]. They did draw a creatinine on the which was normal at 1.1, which looks to be his baseline. ASSESSMENT/PLAN 1. Acute kidney injury. This looks to be prerenal in nature from possible dehydration. Had altered renal compensation on his SHERI inhibitor. Both his hydrochlorothiazide and lisinopril were held. He is getting fluids. Certainly, if he does have some sepsis this may be playing a prerenal role as well. He has been started on antibiotics. We will continue with bladder scans and I have instructed the nursing staff that if his residual urine is greater than 300 cc to go ahead and place a Calix catheter tonight. 2. Hypertension. The patient is now only on propranolol with intermittent elevated readings. I will add some p.r.n. clonidine. 3. Urinary retention with bladder scans ordered and Calix as needed. 4. Bacteremia on Zyvox at this time. Source is unclear and I will order a two-dimensional echo. 5. History of pancreatitis. 6. Depression with psychosis. He will need psychiatry to see here. Would like to thank Dr. Orozco for this consult and the opportunity to participate in the evaluation and care of Mr. Abbott. Dictated by... Stephen Kilpatrick Jr., M.D. KYLIE/angel TD: 04/19/2017 09:10 JOB #: [id number] CONSULTATION REPORT Page 1 of 1 X Stephen Kilpatrick MD CONSULTATION REPORT
--- NOTE | ~2017-04-17 | OR ---
Unit #: [id number] #: [id number] Patient: SYLVESTER GUNN [id number] [address] [place], [place] [address] [id number] Liza MR#: [id number] NAME: SYLVESTER GUNN. ROOM: 55 Date of Procedure: 04/23/2017 Admission Date: 04/17/2017 Surgeon: Scott James M.D. : 1955 Attending Physician: Sang Orozco M.D. Primary Care Physician: Carlitos Dowling M.D. OPERATIVE REPORT PREOPERATIVE DIAGNOSIS Right dorsolateral forefoot subcutaneous abscess. POSTOPERATIVE DIAGNOSIS Right dorsolateral forefoot subcutaneous abscess. PROCEDURE PERFORMED Right foot subcutaneous abscess incision and drainage (). SPEECH LANGUAGE PATHOLOGIST PRN None. ANESTHESIA General. INDICATIONS FOR SURGERY The patient is a 61-year-old male with history of pancreatitis and MRSA sepsis, improving by blood culture, who now presents with swollen red dorsolateral forefoot. CT scan documents a subcutaneous abscess without bony involvement. The patient will therefore undergo I and D of this abscess as this is the only source of his sepsis. DESCRIPTION OF PROCEDURE The patient was taken to the operating room and placed in supine position. General anesthetic was induced. The right foot was identified as the correct operative location during the time-out procedure. The IV antibiotic protocol was not followed because he was on preoperative IV antibiotics. The right foot was then prepped and draped in the usual sterile fashion. The foot was exsanguinated with gravity and the thigh tourniquet inflated to 250 mmHg. A 3 cm dorsolateral longitudinal incision was made over the fifth metatarsophalangeal joint. The subcutaneous tissue was carefully divided until the abscess cavity was entered. There was cloudy fluid in the cavity and this was cultured for aerobic and anaerobic bacteria. There was no extension into the joint. The wound was copiously irrigated with 1 L of normal saline. The wound was then packed open with Betadine-soaked 1-inch roll gauze. A sterile dressing was applied with 4x4s, Kerlix, and an Fabiano wrap. The patient was then transported to the recovery room in stable condition. ESTIMATED BLOOD LOSS None. Unit #: [id number] #: [id number] Patient: SYLVESTER GUNN COMPLICATIONS None. SPECIMENS Aerobic and anaerobic culture and sensitivity. TOURNIQUET TIME 10 minutes. PLAN The patient will be allowed to weightbear as tolerated in his postoperative shoe. He well continue IV antibiotics until his sepsis resolves and his white blood cell count normalizes as he will follow up with me in the office in 7 days for wound check. Daily wet-to-dry dressings will be instituted using half strength Dakin solution. Dictated by.Darci Darnell/swathi TD: 04/23/2017 12:17 JOB #: [id number] OPERATIVE REPORT Page 1 of 1 X Arnol James MD X PROCEDURE OPERATIVE NOTE
--- NOTE | ~2017-04-17 | CR72 ---
[facility] A Service of [facility] RADIOLOGY TEXT RESULTS PATIENT: SYLVESTER GUNN LOCATION: [facility] : 56 UNIT #: [id number] AGE: [address]: MARK WARNER V SEX: M ORDER DR: [id number] [facility] [address] [place], [place] [address] [id number] I MR#: [id number] Acc #: [id number] NAME: SYLVESTER GUNN. : 1955 SEX: M STUDY DATE/TIME: 04/27/2017 10:33 UNIT: [facility] ROOM: [facility] STUDY DESCRIPTION: CR Chest Single View Portable Attending Physician: Mark Warner M.D. Ordering Physician: Mark Warner M.D. Primary Care Physician: Carlitos Dowling M.D. MEDICAL IMAGING REPORT This report is preliminary unless electronic signature is present EXAM Portable chest HISTORY Chest pain onset today with cough for the past 2 days. TECHNIQUE A single AP view of the chest was obtained and compared with 04/17/2017. FINDINGS A PICC is in satisfactory position entering from the right. The heart and mediastinum have a normal configuration except for a tortuous aorta. Both lungs are fully expanded and clear and the vascular pattern is normal. No pleural fluid is seen. IMPRESSION No active disease. The tip of the PICC is in good position. Dictated by... Jamaal Miller M.D. THIS IS AN ELECTRONICALLY VERIFIED REPORT Jamaal Miller M.D. at 04/27/2017 4:54 PM BERNARDINO/ramesh TD: 04/27/2017 13:23 JOB #: [id number] MEDICAL IMAGING REPORT Page 1 of 1 COPY
--- NOTE | ~2017-04-17 | XA166 ---
[facility] A Service of [facility] & [facility] RADIOLOGY TEXT RESULTS PATIENT: SYLVESTER GUNN LOCATION: [facility] 557-01 : 57 UNIT #: [id number] AGE: [address]: MARK WARNER V SEX: M ORDER DR: [id number] [facility] [address] [place], [place] [address] [id number] I MR#: [id number] Acc #: [id number] NAME: SYLVESTER GUNN. : 1955 SEX: M STUDY DATE/TIME: 04/27/2017 9:02 UNIT: [facility] ROOM: [facility] STUDY DESCRIPTION: XA PICC Line Placement WO Port Attending Physician: Mark Warner M.D. Ordering Physician: Mark Warner M.D. Primary Care Physician: Carlitos Dowling M.D. MEDICAL IMAGING REPORT This report is preliminary unless electronic signature is present EXAM PICC line placement, 04/27/2017. HISTORY IV access needed. PRE-PROCEDURE The procedure was explained to the patient and/or patient commercial sales representative including risks, benefits, potential complications and potential for alternative forms of treatment. Informed consent was obtained, and prior to initiating the procedure a formal timeout procedure was performed. PROCEDURE Using full standard sterile barrier technique, including caps, gowns, gloves, masks, as well as sterile skin preparation and standard sterile draping, the right arm was prepped and draped in the usual fashion, and real-time sterile ultrasound guidance was used to localize an arm vein and to confirm vessel patency. A hard copy ultrasound image was recorded. After local anesthesia with 1% Xylocaine, the vein was punctured using real-time sterile ultrasound guidance, and an 0.018 guidewire was advanced into the superior vena cava, using fluoroscopic guidance. A 4-Syriac single-lumen PICC was then measured and deployed with the tip positioned in the superior vena cava. The position of the line was documented with a radiographic image. The line was secured in place with an adhesive dressing and an antibiotic patch was applied. Total fluoro time was 0.1 minutes. A single fluoroscopic spot image was obtained. IMPRESSION 1. Successful placement of a 4-Syriac single-lumen PowerPICC via the right arm under ultrasound and fluoroscopic guidance. The tip of the PICC is in good position in the superior vena cava. 2. A single fluoroscopic spot image was obtained. [facility] A Service of [facility] RADIOLOGY TEXT RESULTS PATIENT: SYLVESTER GUNN LOCATION: [facility] 55- : 56 UNIT #: [id number] AGE: [address]: MARK WARNER V SEX: M ORDER DR: Dictated by... Que Fleming M.D. THIS IS AN ELECTRONICALLY VERIFIED REPORT Que Fleming M.D. at 04/27/2017 4:58 PM AMAURY/chance TD: 04/27/2017 12:36 JOB #: [id number] MEDICAL IMAGING REPORT Page 1 of 1 COPY
--- NOTE | ~2017-04-17 | FU ---
[facility] Nutrition Therapy DATE: 04/21/17 Patient: SYLVESTER Hanna LUIS A Physician: ANA Address: [address] Room/Bed: [address] [place] [address], Zip: [place] [address] Admit Date: 04/17/17 Date of : [birth year] Height: Weight: 138 63 NUTRITION MONITORING/FOLLOW-UP: Reason: PT SEEN FOR FOLLOW-UP DX: DEHYDRATION, ABD PAIN, ANOREXIA Anthropometrics: 5'10", WT: 138# (62.7 KG), BMI: 17.7 -ADMIT WEIGHT: 125# (56.8 KG) Labs: GLU: 114, CA+:8.0, ALB: 1.8, AST: 52, ALT: 83 Meds: REMERON, KCL, PROTONIX, THIAMINE, THERAPEUTIC FORMULA, CREON 12, LAXATIVE, ZOFRAN I&O's: 3424/2336, 1 BM NOTED Skin: (R) FOOT ABSCESS Estimated Nutrition Needs: INCREASED NEEDS 2' PT UNDERWEIGHT, WEIGHT LOSS NOTED, DECREASED PO INTAKE AND APPETITE, CLINICAL CONDITION (FROM RD ASSESSMENT ON 04/18/17) Assessment: CHART REVIEWED AND EVENTS NOTED. PT SEEN FOR FOLLOW-UP. PT REPORTS APPETITE IMPROVING, NOTING N/V SUBSIDING. PT HAD LUNCH TRAY AT BEDSIDE-REPORTED PT ATE 100%. PT STATES HE HAS BEEN DRINKING ENSURE SHAKES 2-[address] ENCOURAGED ADEQUATE KCAL AND PROTEIN INTAKE, PT AGREED. PT REPORTED NO DIET QUESTIONS AT THIS TIME. RD TO FOLLOW/REMAIN AVAILABLE. Dx: UNINTENTIONAL WEIGHT LOSS R/T DECREASED PO INTAKE AND APPETITE, ABD DISCOMFORT, PMH AEB PT REPORT ABOVE, NOTING 12.5% SEVERE WEIGHT LOSS NOTED IN PAST 2-3 MONTHS (16#), LOW BMI (17.9), 75%IBW, PT APPEARS CACHECTIC.-ACTIVE Intervention: 1. REGULAR DIET + 6 SMALL MEALS 2. ENSURE SHAKES TID Monitoring, Evaluation and Goals: 1. ORAL INTAKE; CONSUME/TOLERATE >50% OF MEALS AND SUPPLEMENTS-MET/ACTIVE/IN PROGRESS 2. WEIGHTS; PROMOTE GRADUAL WEIGHT GAIN; PREVENT FURTHER WEIGHT LOSS-MET/ACTIVE 3. LABS; WNL-IN PROGRESS NEW GOAL: 1. SKIN; PROMOTE SKIN HEALING MONITOR: -PO INTAKE/APPETITE -WEIGHTS [facility] Nutrition Therapy DATE: 04/21/17 Patient: SYLVESTER Hanna LUIS A Physician: ANA Address: [address] Room/Bed: [address] [place] [address], Zip: [place] [address] Admit Date: 04/17/17 Date of : [birth year] Height: Weight: 138 63 -SUPPLEMENT INTAKE Recommendations: 1. CONTINUE TO ENCOURAGE ADEQUATE PO AND SUPPLEMENT INTAKE 2. CONTINUE TO PROVIDE WEIGHTS q 3 DAYS FOR MONITORING PURPOSES RD WILL F/U PER PROTOCOL PT IS MODERATELY COMPROMISED Respectfully, CORBY RODRIGUEZ MS, RD, LD [facility] cc: client file
--- NOTE | ~2017-04-17 | CO ---
Unit #: [id number] #: [id number] Patient: SYLVESTER GUNN [id number] [facility] [address]. [place], [place] [address] [id number] I MR#: [id number] NAME: SYLVESTER GUNN ROOM: 557 Age: 61 Sex: M Admission Date: 04/17/2017 : 1955 Attending Physician: Sang Orozco M.D. Primary Care Physician: Carlitos Dowling M.D. Consultation Date: 04/18/2017 CONSULTATION REPORT REASON FOR CONSULTATION Depression, anxiety, psychosis. HISTORY OF PRESENT ILLNESS Mr. Lee is a 61-year-old white male, seen in room 557, bed 1 on 04/18/2017 at [facility]. The patient was recently admitted at [facility] on 04/11/2017 with a diagnosis of major depressive disorder with psychotic symptoms. The patient was admitted to [facility] with dehydration and abdominal pain. The patient dressed casually in hospital attire, receiving IV fluids, seemed sad, depressed, withdrawn, isolative, guarded, paranoid. Denied any suicidal ideation, but sad and depressed. The patient's vital signs; temperature 98.2, pulse 98, respirations 16, blood pressure 181/81, and oxygen saturation 99%. The patient denied any use of any drugs or alcohol, but admitted symptoms of depression, anxiety, trouble sleeping, psychosis. No command hallucination. PAST PSYCHIATRIC HISTORY Remarkable for history of previous admission at [facility], last admission on 04/10/2017. No history of any suicide attempt. MEDICAL HISTORY Remarkable for history of essential hypertension, mitral valve prolapse, elevated LFT, history of pancreatitis, history of appendectomy, varicocele. ALLERGIES No known drug allergies. MEDICATIONS The patient is on propranolol, lisinopril, hydrochlorothiazide, Protonix Zyprexa 10 mg at bedtime, Creon, Zoloft 100 mg daily. FAMILY HISTORY AND SOCIAL HISTORY The patient has a good support system, history of depression in family. No history of abuse. No history of any substance abuse. REVIEW OF SYSTEMS Complete review of systems is unremarkable except as mentioned above. MENTAL STATUS EXAMINATION Vital signs, please see above. General appearance; the patient dressed casually in hospital attire, lying comfortably in bed, seemed somewhat anxious, nervous, and guarded. Attention span and concentration, poor. Speech, slow in volume. Oriented in time, place, and person. Mood and Unit #: [id number] #: [id number] Patient: SYLVESTER GUNN affect, sad and depressed. Thought process, circumstantial. Thought content, guarded and paranoid, but denied any hallucination. Recent and remote memory, fair to slightly impaired. Language, fair. Fund of knowledge, fair. Insight and judgment, fair to slightly impaired. DIAGNOSES Psychiatric: Major depressive disorder, recurrent, severe, with psychotic feature, F33.3; anxiety disorder, not otherwise specified, F40.01. Secondary diagnosis: Deferred. Medical diagnosis: Please refer to H and P. Stressors: Psychosocial stressor. ASSESSMENT/PLAN 1. Supportive psychotherapy and psychoeducation provided to the patient. 2. Educated about benefits and side effects of medication and course and prognosis of illness. 3. Recommending to add Vistaril 25 mg b.i.d. for anxiety, Zoloft to continue with 100 mg daily, Zyprexa 10 mg at bedtime. If needed, consider further adjustment of medication. We will continue to follow. Please feel free to call if any questions, telephone #[phone]. Dictated by... Darci Cortez/swathi TD: 04/19/2017 09:10 JOB #: [id number] CONSULTATION REPORT Page 1 of 1 X Danny Herron MD X CONSULTATION REPORT
--- NOTE | ~2017-04-17 | CR72 ---
[facility] A Service of [facility] RADIOLOGY TEXT RESULTS PATIENT: SYLVESTER GUNN LOCATION: [facility] 55- : 56 UNIT #: [id number] AGE: [address]: MARK WARNER V SEX: M ORDER DR: [id number] [facility] [address] [place], [place] [address] [id number] I MR#: [id number] Acc #: [id number] NAME: SYLVESTER GUNN. : 1955 SEX: M STUDY DATE/TIME: 04/17/2017 17:49 UNIT: [facility] ROOM: [facility] STUDY DESCRIPTION: CR Chest Single View Portable Attending Physician: Mark Warner M.D. Ordering Physician: Reji Calderon M.D. Primary Care Physician: Carlitos Dowling M.D. MEDICAL IMAGING REPORT This report is preliminary unless electronic signature is present EXAM Single view chest HISTORY Weakness, sweats, acute psychosis for 2 days. No appetite. History of pancreatitis. Mitral valve prolapse. COMMENT Single frontal portable view of the chest timed 17:49 04/17/2017 reviewed. Comparison studies from 03/30/2017. Cardiac silhouette size normal. No acute-appearing parenchymal infiltrate or acute congestive failure. No pneumothorax. IMPRESSION No active disease. Dictated by... Madiha Matamoros M.D. THIS IS AN ELECTRONICALLY VERIFIED REPORT Madiha Matamoros M.D. at 04/18/2017 2:10 PM SAC/df TD: 04/18/2017 08:04 JOB #: [id number] MEDICAL IMAGING REPORT Page 1 of 1 COPY
--- NOTE | ~2017-04-17 | MAL ---
[facility] DATE: 04/18/17 Patient: SYLVESTER GUNN Physician: ANA Address: [facility] KAREN MORRISON Room/Bed: [address] [place] [address], Zip: [place] [address] Admit Date: 04/17/17 Date of : 57 Height: Weight: 125 56.8 PHYSICAL MALNUTRITION ASSESSMENT Energy Intake, Chronic Illness Moderately reduced: <75% needs for >/=1 month Severely reduced: </=50% needs for >/=1 month Energy Intake, Social/Environmental Moderately reduced: <75% needs for >/=3 months Severely reduced: </=50% needs for </=1 month Energy Intake Comment: PT REPORTS DECREASED PO INTAKE AND APPETITE PAST FEW MONTHS 2' NAUSEA AND ABDOMINAL DISCOMFORT. OF NOTE, PT HAS HISTORY OF MAJOR DEPRESSIVE DISORDER, ANXIETY, PSYCHOSIS. Weight Loss, Chronic Illness Moderate: 7.5% past 3 months Severe: >7.5% past 3 months Weight Loss, Social/Environmental Moderate: 7.5% past 3 months Severe: >7.5% past 3 month Weight Loss, Comment: PT REPORTS LOSING ~18# PAST 2-3 MONTHS (12.5% SEVERE WEIGHT LOSS) Physical Findings Body Fat and Muscle Mass Moderate: (suggested) some loss of subqutaneous fat and/or muscle mass Severe: (obvious) significant muscle wasting and/or loss of subcutaneous fat Physical Findings Functional Capacity Moderate: (suggested) reduced functional capacity Physical Findings Comment: PER RD OBSERVATION, PT TO HAVE SLIGHT DEPRESSION OF TEMPORAL MUSCLE, SOME PROTRUSION OF SHOULDER, SCAPULA AND CLAVICLE MUSCLES, LOSS OF BILATERAL BICEP AND BILATERAL CALF MUSCLE DEFINITION. ALSO DARK CIRCLES AND HOLLOW APPEARANCE OF EYES OBSERVED WELL LOOSE SKIN AND SOMEWHAT APPARENT RIBS, DRY HAIR, NAILS AND LIPS OBSERVED. Dietitian Malnutrition Assessment Score: MODERATE Malnutrition Etiology Summary: Chronic illness moderate Social/Environmental moderate [facility] DATE: 04/18/17 Patient: SYLVESTER GUNN Physician: ANA Address: [facility] KAREN MORRISON Room/Bed: [address] [place] [address], Zip: [place] [address] Admit Date: 04/17/17 Date of : 57 Height: Weight: 125 56.8 Malnutrition Survey Comment: MODERATELY COMPROMISED. SEE RD ASSESSMENT ON 04/18/17. Respectfully, CORBY RODRIGUEZ MS, RD, LD [facility] Psychiatric cc: client file
--- NOTE | ~2017-04-17 | CT71 ---
[facility] RADIOLOGY TEXT RESULTS PATIENT: SYVLESTER GUNN LOCATION: [facility] 55-01 : 56 UNIT #: [id number] AGE: [address]: GEORGIA WARNERUJ V SEX: M ORDER DR: [id number] [facility] [address] [facility]. [place], [place] [address] [id number] MR#: [id number] Acc #: [id number] NAME: SYLVESTER GUNN. : 1955 SEX: M STUDY DATE/TIME: 04/17/2017 17:26 UNIT: [facility] ROOM: [facility] STUDY DESCRIPTION: CT Head Wo Contrast Attending Physician: Hilda Jacobs M.D. Ordering Physician: Reji Calderon M.D. Primary Care Physician: Carlitos Dowling M.D. MEDICAL IMAGING REPORT This report is preliminary unless electronic signature is present EXAM Head CT without HISTORY Confusion, weakness and new onset psychosis today. COMMENT Routine noncontrast head CT is reviewed. There is a comparison from 03/30/2017. This CT examination was performed with one or more of the following radiation dose reduction techniques: automatic exposure control, adjustment of mA and/or kV according to patient size, and iterative reconstruction. There is no displaced calvarial fracture. The visualized paranasal sinuses and mastoid air cells are clear. There is no evidence for acute intracranial hemorrhage or extraaxial fluid collection. The basilar cisterns are patent. There is mild generalized atrophy for age group and there is mild periventricular white matter low-attenuation which is nonspecific but likely due to small vessel disease in age group. No acute cortical infarct is suspected. If there is clinical concern for acute CVA, followup imaging is suggested preferably with an MRI. No intracranial mass effect. IMPRESSION Mild generalized atrophy and mild probable sequelae of small vessel disease. No acute cortical infarct is suspected but if there is clinical concern for acute CVA followup imaging is recommended. Dictated by... Madiha Matamoros M.D. [facility] RADIOLOGY TEXT RESULTS PATIENT: SYLVESTER GUNN LOCATION: [facility] 55- : 56 UNIT #: [id number] AGE: [address]: MARK WARNER V SEX: M ORDER DR: THIS IS AN ELECTRONICALLY VERIFIED REPORT Madiha Matamoros M.D. at 04/18/2017 2:10 PM Nafisa TD: 04/18/2017 06:31 JOB #: [id number] MEDICAL IMAGING REPORT Page 1 of 1 COPY
--- NOTE | ~2017-04-17 | CO ---
Unit #: [id number] #: [id number] Patient: SYLVESTER GUNN [id number] [facility] [address] [facility]. [place], [place] [address] [id number] I MR#: [id number] NAME: SYLVESTER GUNN ROOM: 557 Age: 61 Sex: M Admission Date: 04/17/2017 : 1955 Attending Physician: Sang Orozco M.D. Primary Care Physician: Carlitos Dowling M.D. Consultation Date: 04/26/2017 CONSULTATION REPORT DISCUSSION Mr. Lee is a 61-year-old male, seen on 04/26/2017, in room 557, bed 1, on 04/26/2017, at [facility]. The patient was pleasant and cooperative. Reports feeling better. Decrease in anxiety and depression. Denied any psychotic symptom. The patient's vital signs; temperature 98.2, heart rate 92, respiratory rate 18, blood pressure 138/62, and oxygen saturation 98%. The patient lying comfortably in bed, receiving IV fluids. REVIEW OF SYSTEMS Complete review of systems unremarkable. MENTAL STATUS EXAMINATION General appearance, the patient dressed casually and lying comfortably in bed. Attention span and concentration, fair. Speech, regular rate and coherent. Oriented in time, place, and person. Mood and affect, labile. Thought process, goal directed. The patient denied any thoughts of harming self or others. Recent and remote memory, fair. Language, intact. Fund of knowledge, fair. Insight and judgment, fair to slightly impaired. DIAGNOSES Psychiatric: Major depressive disorder, recurrent, severe, F33.2 and psychosis, not otherwise specified, F29.0. ASSESSMENT/PLAN 1. Supportive psychotherapy and psychoeducation provided to the patient. 2. Educated about benefits and side effects of medication and course and prognosis of illness. 3. Advised to continue with current medication. If needed, consider further adjustment of medication. We will continue to follow. Please feel free to call if any questions, telephone #[phone]. Dictated by... Danny Herron M.D. ANTHONY/swathi TD: 04/26/2017 19:23 JOB #: [id number] Unit #: [id number] #: [id number] Patient: SYLVESTER GUNN CONSULTATION REPORT Page 1 of 1 X Danny Herron MD CONSULTATION REPORT
--- NOTE | ~2017-04-17 | CO ---
Unit #: [id number] #: [id number] Patient: JESUS MACARIO [id number] [address] [address] [id number] I MR#: [id number] NAME: JESUS MACARIO ROOM: 557 Age: 61 Sex: M Admission Date: 04/17/2017 : 1955 Attending Physician: Sang Orozco M.D. Primary Care Physician: Carlitos Dowling M.D. Consultation Date: 04/23/2017 CONSULTATION REPORT REASON FOR CONSULTATION Followup. DISCUSSION Mr. Jesus Macario is a 61-year-old white male, seen in room 557, bed 1 on 04/23/2017. The patient diagnosed with major depressive disorder, anxiety disorder, psychosis. Reports feeling better. The patient dressed in hospital attire, lying comfortably in bed. The patient reports sleeping good. Medication is helping. No side effects from medication. The patient's vital signs stable; temperature 97.7, heart rate 99, respiratory rate 20, blood pressure 128/74, oxygen saturation 98%. The patient denied any hallucination or any thoughts of harming self or others. REVIEW OF SYSTEMS Complete review of system is unremarkable. MENTAL STATUS EXAMINATION General appearance; the patient dressed casually, lying comfortably in bed. Attention span and concentration, fair. Speech, slow in volume and rate. Oriented in time, place, and person. Mood and affect; sad, dysphoric, flat. Thought process, coherent. Thought content, the patient denied any thoughts of harming self or others or any hallucination. Recent and remote memory, fair. Language, intact. Fund of knowledge, fair. Insight and judgment, fair to slightly impaired. DIAGNOSES Psychiatric: Major depressive disorder, recurrent, severe, F33.2; anxiety disorder, not otherwise specified, F40.01; psychosis, not otherwise specified, F29.0. ASSESSMENT/PLAN 1. Supportive psychotherapy and psychoeducation provided to the patient. 2. Educated about benefits and side effects of medication and course and prognosis of illness. 3. Advised to continue with current combination of medication and make further adjustment of medication if needed. The patient can be discharged from here once the patient is medically stable and follow up in outpatient partial hospitalization program of [facility]. Please feel free to call if any questions, telephone #[phone]. Dictated by... Danny Herron M.D. Unit #: [id number] #: [id number] Patient: JESUS MACARIO ANTHONY/modl TD: 04/24/2017 01:35 JOB #: [id number] CONSULTATION REPORT Page 1 of 1 X Danny Herron MD X CONSULTATION REPORT
--- NOTE | ~2017-04-17 | HP ---
Unit #: [id number] #: [id number] Patient: SYLVESTER GUNN [id number] [address] [place], [place] [address] [id number] MR#: [id number] NAME: SYLVESTER GUNN ROOM: Age: 61 Sex: M Admission Date: 04/17/2017 : 1955 Attending Physician: Reji Calderon M.D. Primary Care Physician: Carlitos Dowling M.D. HISTORY AND PHYSICAL CHIEF COMPLAINT Anorexia, acute kidney injury. HISTORY This 61-year-old male with major depressive disorder, hypertension, history of pancreatitis and elevated LFTs, [facility]. The patient was [facility]2017 for major depressive disorder associated with psychosis and suicidal ideation. Has been increasingly anorexic with very little p.o. intake, likely weight loss. Complains of right upper abdominal discomfort. Notes nausea with the above. Denies diarrhea, fevers, sweats, chills, urinary symptoms. He was sent to this facility where he is afebrile with normal vital signs. He looks to be quite cachectic on exam. His abdominal examination is actually benign. Labs are notable for acute kidney injury and leukocytosis although chest x-ray and urinalysis are negative. In the ER he was bolused with fluids, and given 2 g of Rocephin. PAST MEDICAL HISTORY 1. Major depressive disorder with psychotic features. 2. Essential hypertension. 3. Mitral valve prolapse. 4. Elevated LFTs. 5. History of pancreatitis. 6. Appendectomy. 7. Varicocele. ALLERGIES No known drug allergies. MEDICATIONS 1. Propranolol 20 mg t.i.d. 2. Lisinopril 10 mg daily, 3. Hydrochlorothiazide 12.5 mg daily. 4. Protonix 40 mg daily. 5. Zyprexa 10 mg q.h.s. 6. Creon 12 two capsules t.i.d. with meals. 7. Zoloft 100 mg daily. 8. P.r.n. Mylanta, Tylenol and MOM. FAMILY HISTORY Depression. Unit #: [id number] #: [id number] Patient: DELEURE,SYLVESTER J SOCIAL HISTORY The patient lives with his , stopped smoking about 25 years ago, no longer drinks alcohol. REVIEW OF SYSTEMS Notable for complaints of joint pain, weakness, abdominal discomfort, nausea, depression, hypertension, mitral valve prolapse, pancreatitis, abovementioned surgeries. All other systems were reviewed and are otherwise negative. PHYSICAL EXAMINATION GENERAL: Cachectic 61-year-old male who currently is in no acute distress. VITAL SIGNS: Temperature 98.4. Pulse 84. Respirations 18. Blood pressure 135/79. O2 saturations 99% on 2 L of oxygen. HEENT: Eyes PERRLA. Extraocular muscles are intact. Pharynx is benign. NECK: Supple, without adenopathy or thyromegaly. CHEST: Clear. CARDIAC: Normal S1 and S2, without definite murmur. ABDOMEN: Bowel sounds are present. No hepatosplenomegaly, tenderness or masses. EXTREMITIES: Without cyanosis, clubbing or edema. Pedal pulses are present. NEUROLOGIC EXAM: Patient is awake, alert, oriented. His cranial nerves are intact. He has equal strength throughout but is quite weak on exam. DIAGNOSTIC STUDIES LABORATORY: Hematocrit is 36.1, white blood count is 21, normal MCV and platelet count, three bands noted. Coags normal. SMA-12: Glucose 118, BUN 78, creatinine 1.6 up from a normal BUN and creatinine last week, sodium 134, chloride is 98, AST is 48, ALT is 57, normal lipase, amylase minimally elevated at 51, normal lactic acid and ammonia level. Urine tox screen from last week is negative. Urinalysis 1+ protein, otherwise negative. IMAGING: Chest x-ray no acute disease. Head CT shows some atrophy but no acute disease. CARDIOVASCULAR: EKG sinus rhythm, rate 85, normal appearing. ASSESSMENT 1. Major depressive disorder with psychosis, admitted to [facility]. 2. Anorexia with likely weight loss, and upper abdominal complaints. Chronically elevated liver function test are noted. 3. Acute kidney injury secondary to dehydration in combination with lisinopril and hydrochlorothiazide. 4. Mitral valve prolapse, on propranolol. 5. Essential hypertension. 6. History of pancreatitis. 7. Elevated liver function tests. 8. Elevated white blood count. Cultures are pending. No definite source of infection. PLANS 1. IV fluids. Unit #: [id number] #: [id number] Patient: SYLVESTER GUNN 2. Discontinue lisinopril and hydrochlorothiazide. Will decrease propranolol to b.i.d. dosing. 3. CT scan of the abdomen with p.o. contrast. May need GI to see in consultation. 4. Check Hemoccult. 5. Hepatitis profile. 6. SCDs for DVT prophylaxis. 7. Repeat labs in the morning. 8. Will ask Psychiatry to follow while hospitalized. Dictated by Hilda Jacobs M.D. AML/cf TD: 04/17/2017 22:09 JOB #: [id number] HISTORY AND PHYSICAL Page 1 of 1 X Hilda Jacobs MD X HISTORY AND PHYSICAL
--- NOTE | ~2017-04-17 | EKG ---
PATIENT: SYLVESTER GUNN UNIT #: [id number] Ventricular Rate: 88 BPM Atrial Rate: 88 BPM P-R Interval: 154 ms QRS Duration: 76 ms Q-T Interval: 374 ms QTC Calculation(Bezet): 452 ms P Farwell: 43 degrees Calculated R Farwell: 29 degrees Calculated T Farwell: 52 degrees Diagnosis Line: Normal sinus rhythm Diagnosis Line: Normal ECG Diagnosis Line: No previous ECGs available Diagnosis Line: Confirmed by RAIN RIVERA MD ([id number]) on 04/28/2017 Diagnosis Line: 5:09:54 PM INTERPRETING MD: NICOLE PHILLIPS
--- NOTE | ~2017-04-17 | CO ---
Unit #: [id number] #: [id number] Patient: SYLVESTER GUNN [id number] [facility] [address] [facility]. [place], [place] [address] [id number] MR#: [id number] NAME: SYLVESTER GUNN ROOM: 557 Age: 61 Sex: M Admission Date: 04/17/2017 : 1955 Attending Physician: Sang Orozco M.D. Primary Care Physician: Carlitos Dowling M.D. Consultation Date: 04/24/2017 CONSULTATION REPORT REASON FOR CONSULTATION Followup. DISCUSSION Mr. Lee is a 61-year-old white male, seen in room 557 bed 1 on 04/24/2017 at [facility]. The patient dressed casually, lying comfortably in bed. The patient reports making progress, but still flat affect, sad and dysphoric mood. Reports hallucinations are better, improved mood, decrease in anxiety, but withdrawn, flat, and guarded. Vital signs; temperature 97.9, pulse 92, respirations 18, blood pressure 123/61, oxygen saturation 97%. REVIEW OF SYSTEMS Complete review of systems unremarkable. MENTAL STATUS EXAMINATION General appearance, the patient dressed in hospital attire, lying comfortably in bed. Attention span and concentration, fair. Speech, regular rate, slow in volume and rate. Oriented in time, place, and person. Mood and affect; sad, dysphoric, flat. Thought process, coherent. Thought content, the patient denied any thoughts of harming self or others or any hallucination, but guarded and paranoid. Recent and remote memory, fair. Language, intact. Fund of knowledge, fair. Insight and judgment, fair to slightly impaired. DIAGNOSES Psychiatric: Major depressive disorder, recurrent, severe, F33.2; anxiety disorder, not otherwise specified, F40.01; psychosis, not otherwise specified, F29.0. ASSESSMENT AND PLAN 1. Supportive psychotherapy and psychoeducation provided to the patient. 2. Educated about benefits and side effects of medication and course and prognosis of illness. 3. Advised to continue with current combination of medication and make further adjustment of medication if needed. We will continue to follow. Dictated by... Danny Herron M.D. ANTHONY/swathi TD: 04/25/2017 16:22 Unit #: [id number] #: [id number] Patient: SYLVESTER GUNN JOB #: [id number] CONSULTATION REPORT Page 1 of 1 X Danny Herron MD CONSULTATION REPORT
--- NOTE | ~2017-04-17 | CO ---
Unit #: [id number] #: [id number] Patient: SYLVESTER GUNN [id number] [facility] [address] [facility] [place] [facility]. [place], [place] [address] [id number] I MR#: [id number] NAME: SYLVESTER GUNN ROOM: 557 Age: 61 Sex: M Admission Date: 04/17/2017 : 1955 Attending Physician: Sang Orozco M.D. Primary Care Physician: Carlitos Dowling M.D. Consultation Date: 04/27/2017 CONSULTATION REPORT REASON FOR CONSULTATION Chest pain and nonsustained V-tach. HISTORY This is a 61-year-old male with a prior history of major depressive disorder, hypertension, mitral valve prolapse and pancreatitis. [facility] he was being treated for major depression with psychosis and suicidal ideation. He was admitted to [facility] with anorexia, decrease p.o. intake, and weight loss. He was found to have elevated LFTs with some right upper quadrant abdominal pain and weakness, as well as acute kidney injury. On 04/23/2017 he underwent I and do of his right foot abscess, which is positive for MRSA. In addition he had blood cultures that were positive for MRSA as well. Today he was in the radiology department to have a PICC line placed. Post procedure he developed palpitations with intermittent chest pain. On the monitor he was noted to have accelerated idioventricular arrhythmias. He is currently in sinus rhythm and denies chest pain or discomfort. He denies shortness of breath or palpitations. He does report some nausea and weakness. His EKG shows sinus rhythm with ventricular rate of 83 and nonspecific T wave abnormalities. PAST MEDICAL HISTORY 1. Major depressive disorder with psychosis and suicidal ideation. 2. Hypertension. 3. Mitral valve prolapse. 4. Elevated LFTs. 5. Pancreatitis. HISTORY OF PRESENT ILLNESS Patient has a history of mitral valve prolapse. He is to follow with cardiology but not for years. He takes propranolol for his mitral valve prolapse and does report rare incidence of palpitations. PAST SURGICAL HISTORY 1. Appendectomy. 2. Variceal. SOCIAL HISTORY He lives with his . He is a reformed smoker who quit about 25 years ago. He states he no longer drinks but he was a heavy drinker in the past who would drink about a 6 pack of beer a day on the weekends only. He is a botany teacher for kindergarten. FAMILY HISTORY Unit #: [id number] #: [id number] Patient: SYLVESTER GUNN His father of an ME at the age of 72. ALLERGIES No known drug allergies. HOME MEDICATIONS Propranolol 20 mg t.i.d.; lisinopril 10 mg p.o. daily; hydrochlorothiazide 12.5 mg daily; Protonix 40 mg daily; Zyprexa 10 mg p.o. every hour of sleep; Creon two capsule t.i.d. with meals; Zoloft 100 mg p.o. daily. REVIEW OF SYSTEMS A ten point review of systems was conducted and is otherwise negative except for what was listed in the HPI. PHYSICAL EXAMINATION VITAL SIGNS: Temp 98.8, heart rate 91, respiratory rate 16, blood pressure 139/74. GENERAL: This is a pale 61-year-old male resting in bed in no acute distress. HEENT: Head is atraumatic and normocephalic. Pupils equal, round, reactive to light. Mucous membranes are moist and intact. NECK: Supple. Trachea is midline. No JVD. LUNGS: Clear. Diminished in bases. Nonlabored respirations. CARDIOVASCULAR: S1 and S2. Irregularly, irregular rhythm. No significant murmurs, rubs or gallops. ABDOMEN: Soft. Tender right upper quadrant to palpation. Positive bowel sounds. EXTREMITIES: Pulses are palpable. No pedal edema. No cyanosis. NEUROLOGIC: Alert and oriented x3. Follows all commands without difficulty and moves extremities equally. DIAGNOSTIC STUDIES LABORATORY RESULTS: Sodium 138, potassium 3.8, chloride 103, BUN 10 creatinine 1, glucose 122, AST 32, ALT 59, alk phos 66. TSH 1.01. Troponin 0.48. PT 10.7, INR 1, PTT 28.2. Hemoglobin 11, hematocrit 33.1, white blood cell count 9.6, platelets 410. Blood cultures on 04/20/2017 were positive for MRSA in one of two and blood cultures on 04/24/2017 were negative x2. IMAGING STUDIES: Chest x-ray shows no active disease. CARDIOVASCULAR STUDIES: EKG reveals sinus rhythm with a ventricular rate of 83 and nonspecific T wave abnormalities. ASSESSMENT 1. Acute on chronic pancreatitis. 2. Accelerated idioventricular rhythm. 3. Rule out ETOH pancreatitis. 4. Hypertension. 5. Major depressive disorder. 6. History of mitral valve prolapse. 7. Non-STEMI. PLAN 1. We will increase his beta-kenyon for heart rate and blood pressure control. 2. Continue to trend enzymes. 3. EKG in a.m. Unit #: [id number] #: [id number] Patient: SYLVESTER GUNN 4. Check lipid profile. 5. Aspirin 81 mg p.o. once a day. 6. Start heparin drip if okay with admitting. 7. Plan for cardiac cath tomorrow. Thank you for asking us to see this patient. We appreciate the consult. 8. 9. 10. H H Dictated by... Toya Encarnacion APRN for Ron Cabezas M.D. TONEY/jeri TD: 04/28/2017 09:59 JOB #: [id number] CONSULTATION REPORT Page 1 of 1 X X CONSULTATION REPORT
--- NOTE | ~2017-04-17 | CO ---
Unit #: [id number] #: [id number] Patient: SYLVESTER GUNN [id number] [address] [address] [id number] I MR#: [id number] NAME: SYLVESTER GUNN ROOM: 557 Age: 61 Sex: M Admission Date: 04/17/2017 : 1955 Attending Physician: Sang Orozco M.D. Primary Care Physician: Carlitos Dowling M.D. Consultation Date: 04/28/2017 CONSULTATION REPORT REASON FOR CONSULTATION Follow-up visit. DISCUSSION Mr. Lee is a 61-year-old male seen in room 557, bed 1 on 04/28/2017. The patient was dressed casually in hospital attire, laying comfortably in bed. The patient denies any complaint and reports making progress. Denied any thoughts of harming self or others. Denied any psychotic symptoms. Still sad, depressed, withdrawn, isolative. Vital signs 98.4, 18, 135/72, oxygen saturation 100%. Complete review of systems unremarkable except as mentioned above. MENTAL STATUS EXAMINATION General appearance, the patient is dressed casually in hospital attire, lying comfortably in bed. Attention span and concentration fair. Speech is regular rate. Coherent. Oriented to place and person. Mood and affect labile. Thought process goal directed. The patient denied any thoughts of harming self or others. No psychotic symptoms. Recent and remote memory fair. Language and fund of knowledge fair. Insight and judgment fair to slightly impaired. DIAGNOSIS PSYCHIATRIC: Major depressive disorder recurrent, severe. F33.2. Psychosis, n.o.s. F29.0. ASSESSMENT/PLAN 1. Supportive psychotherapy. Psychoeducation provided to the patient. 2. Educated about the benefits and side effects of medication and course of illness. 3. Will continue with current medication combination. Consider further adjustment of medication. Please feel free to call if any questions, telephone number [phone]. Dictated by... Darci Cortez/angel TD: 04/30/2017 13:20 JOB #: [id number] Unit #: [id number] #: [id number] Patient: SYLVESTER GUNN CONSULTATION REPORT Page 1 of 1 X Danny Herron MD CONSULTATION REPORT
--- NOTE | ~2017-04-17 | CO ---
Unit #: [id number] #: [id number] Patient: SYLVESTER GUNN [id number] [address] [address] [id number] I MR#: [id number] NAME: SYLVESTER GUNN. ROOM: 55 Age: 61 Sex: M Admission Date: 04/17/2017 : 1955 Attending Physician: Sang Orozco M.D. Primary Care Physician: Carlitos Dowling M.D. CONSULTATION REPORT CHIEF COMPLAINT Right fifth toe pain and redness. HISTORY OF PRESENT ILLNESS The patient is a 61-year-old white male with a history of major depressive disorder, hypertension, pancreatitis and elevated LFTs, with a current diagnosis of MRSA bacteremia. The patient was transferred to [facility] for his history of anorexia. The patient states he has also noticed redness and pain within his right fifth toe for the past two days. The patient does report pain with weightbearing. He denies pain with passive range of motion. He denies any fevers, sweats or chills. He denies a history of drug use. The patient reports his right fifth toe is mildly tender to palpation. PAST MEDICAL HISTORY 1. Major depressive disorder with psychotic features. 2. Essential hypertension. 3. Mitral valve prolapse. 4. Elevated LFTs. SOCIAL HISTORY The patient lives with . Past smoker 25 years ago. No alcohol abuse reported. FAMILY HISTORY Depression. ALLERGIES No known drug allergies. CURRENT MEDICATIONS 1. Propranolol 20 mg t.i.d. 2. Lisinopril 10 mg daily. 3. Hydrochlorothiazide 12.5 mg daily. 4. Protonix 40 mg daily. 5. Zyprexa 10 mg at nighttime. 6. Creon 12, 2 capsules t.i.d. with meals. 7. Zoloft 100 mg daily. 8. P.r.n. Mylanta. 9. Tylenol. 10. Milk of Magnesia. REVIEW OF SYSTEMS See symptoms reported in history of present illness. Unit #: [id number] #: [id number] Patient: SYLVESTER GUNN PHYSICAL EXAMINATION GENERAL: Cachectic 61-year-old white male, in no acute distress. VITALS: Temperature 99.4, pulse 92, respiratory rate 16, blood pressure 140/89, O2 98% on room air. LUNGS: Nonlabored breathing. HEART: Normal/regular rate and rhythm. EXTREMITIES: Right lower extremity, palpable dorsalis pedis and posterior tibialis pulses, up and down movement of toes, brisk capillary refill. Minimal fluctuance in the fifth MTP joint. Erythema surrounding fifth MTP joint. No pain with passive range of motion. NEUROLOGIC: Cranial nerves intact. PSYCHIATRIC: Mood within normal limits. Affect appropriate. DIAGNOSTIC STUDIES IMAGING: CT of the right lower extremity, subtle focus of confluent edema/early peripheral enhancement over the lateral aspect of the foot at the level of the fifth MTP joint. This measures approximately 1.8 x 2.7 x 0.7 cm and concerning for developing soft tissue phlegmon/abscess. LABORATORY: Potassium 3.6, magnesium 1.8, glucose 114, calcium 8, AST 52, ALT 83, protein 5.3, albumin 1.8, magnesium 1.5, blood cultures MRSA. CBC, white blood cell count 15.4, endstage renal disease blood cells 3.45, hemoglobin 10.6, hematocrit 31.8. ASSESSMENT/PLAN The patient is a 61-year-old white male with a history of MRSA with a current diagnosis of MRSA bacteremia with possible abscess of the first MTP joint. Will continue antibiotic treatment per infectious disease and Dr. James to see tomorrow to establish further treatment plan. The patient may weight bear as tolerated to the right lower extremity. May apply dry dressing to the base of the fifth toe. Dictated by... Paola Mercado PA-C for Darci Sommer/gz TD: 04/21/2017 13:06 JOB #: [id number] CC: Scott James M.D. CONSULTATION REPORT Page 1 of 1 X X CONSULTATION REPORT
--- NOTE | ~2017-04-17 | DS ---
Unit #: [id number] #: [id number] Patient: SYLVESTER GUNN [id number] [address] [place], [place] [address] [id number] I MR#: [id number] NAME: SYLVESTER GUNN ROOM: 55 Age: 61 Sex: M Admission Date: 04/17/2017 : 1955 Discharge Date: 04/29/2017 Attending Physician: Sang Orozco M.D. Primary Care Physician: Carlitos Dowling M.D. DISCHARGE SUMMARY REVISED/ADDENDED REPORT DISCHARGE DIAGNOSES 1. Methicillin resistant Staph aureus bacteremia. 2. Right foot abscess. 3. Right foot cellulitis. 4. Acute pancreatitis. 5. Accelerated idioventricular rhythm. 6. Major depressive disorder. 7. Non ST myocardial infarction. HOSPITAL COURSE The patient is a 61-year-old man with a prior history of major depressive disorder, hypertension, pancreatitis, mitral valve prolapse who was admitted at [facility] and was being treated for major depression with psychosis and suicidal ideation. During his admission the psychiatrist was consulted and saw the patient on a regular basis. The patient is safe to be discharged home. Also during the admission, the patient grew MRSA in the blood and was started on IV antibiotics to treat MRSA. He is to continue with IV daptomycin until 05/22/2017. Also during the admission he had a right foot abscess with cellulitis. The abscess was incised and drained by orthopedic. Also during his admission the patient developed palpitations and chest discomfort following PICC line placement. Cardiology was consulted. He had idioventricular arrhythmias and then followed by return to normal sinus rhythm. The patient underwent cardiac catheterization, which was normal, and he is to follow up with cardiology as an outpatient and continue metoprolol 50 mg twice a day. CONSULTANTS Infectious disease, cardiology, orthopedic, psychiatry. PROCEDURES 1. Incision and drainage. 2. PICC line placement. 3. Cardiac catheterization. DISCHARGE MEDICATIONS 1. Mirtazapine 7.5 mg p.o. at bedtime. 2. Zoloft 100 mg p.o. every morning. 3. Metoprolol 50 mg p.o. twice a day. 4. Creon capsules, two capsules p.o. 3 times a day with meals. 5. Multivitamin tab 1 p.o. once daily. 6. Hydroxyzine pamoate 25 mg p.o. twice daily. 7. Daptomycin IV q.24 hours until 05/22/2017. Unit #: [id number] #: [id number] Patient: SYLVESTER GUNN 8. Wet to dry dressings to the right foot with 1/4 strength Dakin solution. 9. Regular daily dressing changes. JOB [id number] DISCHARGE INSTRUCTIONS 1. The patient is to follow up with orthopaedist, Dr. James, one week after discharge. 2. The patient to follow up with [facility] one week after discharge. 3. The patient to follow up with Cardiology one month after discharge. The patient is to have home health services. Regular lab draws. Followup with primary care physician. Call lab draws to Infectious Disease office. Dictated by... Darci Hill TD: 05/02/2017 09:33 JOB #: [id number] Clementine Green DISCHARGE SUMMARY Page 1 of 1 X X DISCHARGE SUMMARY
--- NOTE | ~2017-04-17 | CT93 ---
[facility] A Service of [facility] RADIOLOGY TEXT RESULTS PATIENT: SYLVESTER GUNN LOCATION: [facility] 557-01 : [birth year] UNIT #: [id number] AGE: [address]: MARK WARNER V SEX: M ORDER DR: [id number] [facility] [address] [facility]. [place], [place] [address] [id number] I MR#: [id number] Acc #: [id number] NAME: SYLVESTER GUNN. : 1955 SEX: M STUDY DATE/TIME: 04/19/2017 10:51 UNIT: [facility] ROOM: [facility] STUDY DESCRIPTION: CT Lower Ext Rt W Cont Attending Physician: Mark Warner M.D. Ordering Physician: Ed Doctor [id number] [facility] Primary Care Physician: Carlitos Dowling M.D. MEDICAL IMAGING REPORT This report is preliminary unless electronic signature is present EXAM CT right lower extremity with contrast HISTORY Redness and swelling of right foot x1 week, states getting worse. Right foot pain. TECHNIQUE Thin section axial images performed through the right lower leg and ankle following IV contrast. Multiplanar reconstructed images reviewed at a workstation. This CT exam was performed with one or more of the following radiation dose reduction techniques: automatic exposure control, adjustment of mA and/or kV according to patient size, and iterative reconstruction. FINDINGS Along the lateral aspect of the forefoot at the level of the fifth MTP joint there is a area of confluent low density within the subcutaneous tissues corresponding to the area marked by the gel capsule. This measures approximately 1.8 cm in greatest AP dimension, about 2.7 cm in greatest cephalocaudal dimension and about 7.0 mm in thickness. This is concerning for a developing phlegmon or abscess. No soft tissue gas. No radiopaque foreign body. There is surrounding soft tissue edema. No osseous abnormality identified and the fifth MTP joint appears uninvolved. There is some mild generalized soft tissue swelling and edema about the foot and ankle particularly along the anterior lateral ankle. Dukt-ls-iiaklxud arthritic change is seen at the first MTP joint. The foot musculature appears normal. Normal vascular enhancement. The area of suspected abscess does demonstrate some subtle peripheral enhancement. IMPRESSION 1. Subtle focus of confluent edema and possible early peripheral STS. [facility] A Service of [facility] RADIOLOGY TEXT RESULTS PATIENT: SYLVESTER GUNN LOCATION: [facility] 557-01 : 56 UNIT #: [id number] AGE: [address]: MARK WARNER V SEX: M ORDER DR: enhancement overlying the lateral aspect of the foot at the level of the fifth MTP joint. This measures approximately 1.8 x 2.7 x 0.7 cm in greatest transverse dimensions and is concerning for a developing soft tissue phlegmon or abscess. No osseous involvement and no evidence of a septic arthritis. 2. Mild generalized soft tissue swelling and edema about the foot with some confluent edema over the lateral aspect of the foot and ankle. 3. Moderate arthritic changes first MTP joint. Dictated by... Vanda Hudson M.D. THIS IS AN ELECTRONICALLY VERIFIED REPORT Vanda Hudson M.D. at 04/19/2017 5:11 PM Inga TD: 04/19/2017 14:54 JOB #: [id number] MEDICAL IMAGING REPORT Page 1 of 1 COPY
--- NOTE | ~2017-04-17 | CO ---
Unit #: [id number] #: [id number] Patient: SYLVESTER GUNN [address] [facility] [address] [facility]. [place], [place] [address] [id number] I MR#: [id number] NAME: SYLVESTER GUNN ROOM: 557 Age: 61 Sex: M Admission Date: 04/17/2017 : 1955 Attending Physician: Sang Orozco M.D. Primary Care Physician: Carlitos Dowling M.D. Consultation Date: 04/25/2017 CONSULTATION REPORT DISCUSSION Mr. Lee is a 61-year-old male. The patient interviewed, chart reviewed, and obtained information from nursing staff. The patient seen in room 557, bed 1 on 04/25/2017 at [facility]. The patient was pleasant and cooperative. Reports medication is helping him making progress. Denied any thoughts of harming self or others. Denied any psychotic symptom. The patient's vital signs; temperature 99.6, pulse 88, respirations 18, blood pressure 151/98, oxygen saturation 97%. REVIEW OF SYSTEMS Complete review of systems unremarkable. MENTAL STATUS EXAMINATION General appearance; the patient dressed casually, lying comfortably in bed. Attention span and concentration, fair. Speech, regular rate and coherent. Oriented in time, place, and person. Mood and affect; sad, dysphoric, flat. Thought process, coherent. Thought content, the patient denied any thoughts of harming self or others, but somewhat guarded, but denied any hallucination. Recent and remote memory, fair. Language, intact. Fund of knowledge, fair. Insight and judgment, fair to slightly impaired. DIAGNOSES Major depressive disorder, recurrent, severe, F33.2; anxiety disorder, not otherwise specified; psychosis, not otherwise specified; rule out bipolar mood disorder. ASSESSMENT AND PLAN 1. Supportive psychotherapy and psychoeducation provided to the patient. 2. Educated about benefits and side effects of medication and course and prognosis of illness. 3. Advised to continue with current combination of medication and we will make further adjustment of medication. If needed, please feel free to call if any question telephone #[phone]. Dictated by... Danny Herron M.D. ANTHONY/swathi TD: 04/25/2017 19:54 JOB #: [id number] Unit #: [id number] #: [id number] Patient: SYLVESTER GUNN CONSULTATION REPORT Page 1 of 1 X Danny Herron MD CONSULTATION REPORT
--- NOTE | ~2017-04-17 | EKG ---
PATIENT: SYLVESTER GUNN UNIT #: [id number] Ventricular Rate: 83 BPM Atrial Rate: 83 BPM P-R Interval: 152 ms QRS Duration: 76 ms Q-T Interval: 384 ms QTC Calculation(Bezet): 451 ms P [place]: 47 degrees Calculated R [place]: 12 degrees Calculated T [place]: 47 degrees Diagnosis Line: Normal sinus rhythm Diagnosis Line: Possible Left atrial enlargement Diagnosis Line: Borderline ECG Diagnosis Line: When compared with ECG of 17-APR-2017 17:43, Diagnosis Line: No significant change was found Diagnosis Line: Confirmed by RAIN RIVERA MD ([id number]) on 04/28/2017 Diagnosis Line: 5:01:47 PM INTERPRETING MD: NICOLE PHILLIPS
--- NOTE | ~2017-04-17 | A ---
[facility] Nutrition Therapy DATE: 04/18/17 Patient: SYLVESTER Hanna LUIS A Physician: ANA Address: [address] Room/Bed: [address] [place] [address], Zip: [place] [address] Admit Date: 04/17/17 Date of : 57 Height: Weight: 125 56.8 NUTRITIONAL ASSESSMENT: REASON: 4 NUTRITION RISK PT RE: WEIGHT LOSS + POOR PO INTAKE, ALSO CONSULT PT IS 61 Y.O. MALE ADMITTED FOR DEHYDRATION, ABD PAIN, ANOREXIA PMH: HTN, GERD, PANCREATITIS, DEPRESSION Anthropometrics: 5'10", WT: 125# (56.8 KG), BMI: 17.9, 75%IBW Labs: GLU: 118, BUN: 78, CREAT: 1.6, ALB: 2.9, AST: 48, ALT: 57, NA+:134, GFR: 46.2 Meds: PROTONIX, THIAMINE, CREON 12, LAXATIVE, ZOFRAN, NACL, D5% I/O & Bowel function: 1000/400 Skin Integrity: NO KNOWN SKIN ISSUES Estimated Nutrition Needs: INCREASED NEEDS 2' PT UNDERWEIGHT, WEIGHT LOSS NOTED, DECREASED PO INTAKE AND APPETITE, CLINICAL CONDITION Assessment: CHART REVIEWED AND EVENTS NOTED. PT SEEN FOR 4 NUTRITION RISK PT RE: WEIGHT LOSS + POOR PO INTAKE, ALSO CONSULT RECEIVED. PT REPORTS DECREASED PO INTAKE 2' DECREASED APPETITE D/T NAUSEA AND ABDOMINAL DISCOMFORT PAST FEW MONTHS. PT SLIGHTLY CONFUSED AT TIME OF VISIT. OF NOTE, RD AT [facility] ASSESSED PT ON 04/12/17 AND NOTED A ~16# WEIGHT LOSS IN PAST 2-3 MONTHS. PT WAS ADMITTED AT [facility] FOR ANXIETY, DEPRESSION AND SUICIDAL IDEATION. PT CURRENTLY REPORTS LOSING ~18# PAST 2-3 MONTHS (12.5% SEVERE WEIGHT LOSS). THIS RD ENCOURAGED ADEQUATE KCAL, PROTEIN AND FLUID INTAKE (FREQUENT SMALL MEALS), + SUPPLEMENT INTAKE, PT AGREED TO ENSURE SHAKES TID W/MEALS, RD WILL ORDER. PT REPORTED NO DIET QUESTIONS AT THIS TIME. RD TO FOLLOW. Dx: UNINTENTIONAL WEIGHT LOSS R/T DECREASED PO INTAKE & APPETITE, ABD DISCOMFORT, PMH AEB PT REPORT ABOVE, NOTING 12.5% SEVERE WEIGHT LOSS NOTED IN PAST 2-3 MONTHS (~16#), LOW BMI NOTED (17.9), 75%IBW, PT APPEARS CACHECTIC. Intervention: 1. REGULAR DIET 2. ENSURE SHAKES TID W/MEALS 3. 6 SMALL MEALS Monitoring, Evaluation and Goals: 1. ORAL INTAKE; CONSUME/TOLERATE >50% OF MEALS AND SUPPLEMENTS 2. WEIGHTS; PROMOTE GRADUAL WEIGHT GAIN; PREVENT FURTHER WEIGHT LOSS 3. LABS; WNL [facility] Nutrition Therapy DATE: 04/18/17 Patient: SYLVESTER Hanna LUIS A Physician: ANA Address: [address] [place] [address] Room/Bed: [address] [place] [address], Zip: [place] [address] Admit Date: 04/17/17 Date of : [birth year] Height: Weight: 125 56.8 MONITOR: -PO INTAKE/APPETITE -WEIGHTS -SUPPLEMENT INTAKE Recommendations: 1. CONTINUE CURRENT DIET ORDER ABOVE TO ALLOW MORE FOOD CHOICE SELECTION 2. PLEASE ORDER CHOCOLATE ENSURE SHAKES TID W/MEALS FOR SUPPLEMENTAL NUTRITION 3. PLEASE ADD 6 SMALL MEALS TO CURRENT DIET ORDER TO BETTER FACILITATE PO INTAKE 4. APPRECIATE FAMILY AND STAFF TO ENCOURAGE PO INTAKE 5. PLEASE PROVIDE WEIGHTS q 3 DAYS FOR MONITORING PURPOSES, PT CLINICALLY UNDERWEIGHT RD WILL F/U PER PROTOCOL PT IS MODERATELY COMPROMISED Respectfully, CORBY RODRIGUEZ MS, RD, LD Food and Nutritional Services [facility] cc: client file
--- NOTE | ~2017-04-17 | CT4 ---
[facility] A Service of [facility] RADIOLOGY TEXT RESULTS PATIENT: SYLVESTER GUNN LOCATION: [facility] 557 : 56 UNIT #: [id number] AGE: [address]: MARK WARNER V SEX: M ORDER DR: [id number] [facility] [address] [facility]. [place], [place] [address] [id number] I MR#: [id number] #: [id number] NAME: SYLVESTER GUNN : 1955 SEX: M STUDY DATE/TIME: 04/18/2017 9:39 UNIT: B ROOM: [facility] STUDY DESCRIPTION: CT Abd and Pelv Wo Cont Attending Physician: Mark Warner M.D. Ordering Physician: Reji Calderon M.D. Primary Care Physician: Carlitos Dowling M.D. MEDICAL IMAGING REPORT This report is preliminary unless electronic signature is present EXAM CT abdomen and pelvis without contrast. INDICATIONS Weakness, loss of appetite and generalized abdominal pain since 04/17/2017. PROCEDURE Unenhanced CT of the abdomen and pelvis. This CT exam was performed with one or more of the following radiation dose reduction techniques: automatic exposure control, adjustment of mA and/or kV according to patient size, and iterative reconstruction. COMPARISON None. FINDINGS ABDOMEN WITHOUT CONTRAST: Minimal dependent atelectasis in the lung bases. Liver, spleen, adrenal glands, pancreas and gallbladder unremarkable. Mild nonspecific perinephric stranding. Otherwise kidneys are unremarkable. Scattered uncomplicated colonic diverticula. Bowel loops are nondilated. No abdominal lymphadenopathy. PELVIS WITHOUT CONTRAST: Bladder is distended with urine. No pelvic mass or adenopathy. No aggressive appearing bone lesion. IMPRESSION 1. No acute findings in the abdomen or pelvis. 2. Bladder is significantly distended with urine. Correlate for the possibility of bladder outlet obstruction. Dictated by... Reynaldo Larsen M.D. [facility] A Service of [facility] RADIOLOGY TEXT RESULTS PATIENT: SYLVESTER GUNN LOCATION: [facility] 5503-04 : 57 UNIT #: [id number] AGE: [address]: MARK WARNER V SEX: M ORDER DR: THIS IS AN ELECTRONICALLY VERIFIED REPORT Reynaldo Larsen M.D. at 04/24/2017 8:52 AM LISA/daisy TD: 04/18/2017 13:35 JOB #: [id number] MEDICAL IMAGING REPORT Page 1 of 1 COPY
--- NOTE | ~2017-04-17 | CO ---
Unit #: [id number] #: [id number] Patient: JESUS ABBOTT [id number] [address] [address] [id number] I MR#: [id number] NAME: JESUS ABBOTT ROOM: 557 Age: 61 Sex: M Admission Date: 04/17/2017 : 1955 Attending Physician: Sang Orozco M.D. Primary Care Physician: Carlitos Dowling M.D. Consultation Date: 04/20/2017 CONSULTATION REPORT DISCUSSION Mr. Jesus Abbott is a 61-year-old male, seen in room 557, bed 1 on 04/20/2017. The patient dressed casually; lying comfortably in bed; seemed sad, depressed, withdrawn, isolative, guarded. The patient denied any thought of harming self or others. Complaint with medication. The patient is still having a lot of problem with the anxiety and mood lability. Vital Signs; temperature 99.0, pulse 84, respiratory rate 16, blood pressure 143/90, and oxygen saturation 94%. REVIEW OF SYSTEMS Complete review of system is unremarkable. MENTAL STATUS EXAMINATION General appearance; the patient dressed casually, lying comfortably in bed, dressed in hospital attire, seemed somewhat anxious. Attention span and concentration, fair. Speech, slow in volume. Oriented in time, place, and person. Mood and affect; sad, depressed, anxious. Thought process, goal directed. Thought content, the patient denied any thoughts of harming self or others, but guarded and paranoid. Recent and remote memory, poor. Insight and judgment, fair to slightly impaired. DIAGNOSES 1. Major depressive disorder, recurrent, severe, with psychotic features, F33.2. 2. Anxiety disorder, not otherwise specified, F40.01. ASSESSMENT/PLAN 1. Supportive psychotherapy and psychoeducation provided to the patient. 2. Educated about benefits and side effects of medication and course and prognosis of illness. 3. Advised to continue with current combination of medication. If needed, consider further adjustment of medication. The patient is currently on Zoloft, Vistaril, and Remeron combination. Dictated by... Danny Herron M.D. ANTHONY/swathi TD: 04/21/2017 03:35 JOB #: [id number] Unit #: [id number] #: [id number] Patient: JESUS ABBOTT CONSULTATION REPORT Page 1 of 1 X Danny Herron MD CONSULTATION REPORT
--- NOTE | ~2017-04-17 | DS ---
Unit #: [id number] #: [id number] Patient: SYLVESTER GUNN [id number] [address] [place], [place] [address] [id number] I MR#: [id number] NAME: SYLVESTER GUNN ROOM: 55 Age: 61 Sex: M Admission Date: 04/17/2017 : 1955 Discharge Date: 04/29/2017 Attending Physician: Sang Orozco M.D. Primary Care Physician: Carlitos Dowling M.D. DISCHARGE SUMMARY DISCHARGE DIAGNOSES 1. Methicillin resistant Staph aureus bacteremia. 2. Right foot abscess. 3. Right foot cellulitis. 4. Acute pancreatitis. 5. Accelerated idioventricular rhythm. 6. Major depressive disorder. 7. Non ST myocardial infarction. HOSPITAL COURSE The patient is a 61-year-old man with a prior history of major depressive disorder, hypertension, pancreatitis, mitral valve prolapse who was admitted at [facility] and was being treated for major depression with psychosis and suicidal ideation. During his admission the psychiatrist was consulted and saw the patient on a regular basis. The patient is safe to be discharged home. Also during the admission, the patient grew MRSA in the blood and was started on IV antibiotics to treat MRSA. He is to continue with IV daptomycin until 05/22/2017. Also during the admission he had a right foot abscess with cellulitis. The abscess was incised and drained by orthopedic. Also during his admission the patient developed palpitations and chest discomfort following PICC line placement. Cardiology was consulted. He had idioventricular arrhythmias and then followed by return to normal sinus rhythm. The patient underwent cardiac catheterization, which was normal, and he is to follow up with cardiology as an outpatient and continue metoprolol 50 mg twice a day. CONSULTANTS Infectious disease, cardiology, orthopedic, psychiatry. PROCEDURES 1. Incision and drainage. 2. PICC line placement. 3. Cardiac catheterization. DISCHARGE MEDICATIONS 1. Mirtazapine 7.5 mg p.o. at bedtime. 2. Zoloft 100 mg p.o. every morning. 3. Metoprolol 50 mg p.o. twice a day. 4. Creon capsules, two capsules p.o. 3 times a day with meals. 5. Multivitamin tab 1 p.o. once daily. 6. Hydroxyzine pamoate 25 mg p.o. twice daily. 7. Daptomycin IV q.24 hours until 05/22/2017. 8. Wet to dry dressings to the right foot with 1/4 strength Dakin solution. 9. Regular daily dressing changes. Unit #: [id number] #: [id number] Patient: SYLVESTER GUNN Dictated by... Darci Hill/jeri TD: 05/02/2017 09:53 JOB #: [id number] DISCHARGE SUMMARY Page 1 of 1 X X DISCHARGE SUMMARY
--- NOTE | ~2017-04-17 | CO ---
Unit #: [id number] #: [id number] Patient: SYLVESTER GUNN [id number] [facility] [address]. [place], [place] [address] [id number] MR#: [id number] NAME: SYLVESTER GUNN ROOM: 557 Age: 61 Sex: M Admission Date: 04/17/2017 : 1955 Attending Physician: Sang Orozco M.D. Primary Care Physician: Carlitos Dowling M.D. Consultation Date: 04/21/2017 CONSULTATION REPORT DISCUSSION Mr. Lee is a 61-year-old male, seen on 04/21/2017 in room 557 bed 1 on 04/21/2017 at [facility]. The patient is withdrawn, isolative, flat affect. Dressed casually. The patient seemed somewhat anxious, nervous, sad, depressed, withdrawn, isolative, guarded. The patient denied any side effects from medication. Denied any thoughts of harming self or others. The patient's vital signs; temperature 99.7, pulse 97, respirations 20, blood pressure 118/71, and oxygen saturation 96%. REVIEW OF SYSTEMS Complete review of systems unremarkable. MENTAL STATUS EXAMINATION General appearance, the patient dressed casually in hospital attire, lying comfortably in bed, seemed somewhat anxious. Attention span and concentration, fair. Speech, slow in volume. Oriented in place and person. Mood and affect; sad and depressed. Thought process, coherent. Thought content, the patient denied any thoughts of harming self or others, but guarded, paranoid. Recent and remote memory, fair. Language, intact. Fund of knowledge, fair. Insight and judgment, fair to slightly impaired. DIAGNOSES Major depressive disorder, recurrent, severe, F33.2; anxiety disorder, not otherwise specified, F40.01; psychosis, not otherwise specified, F29.0. ASSESSMENT AND PLAN 1. Supportive psychotherapy and psychoeducation provided to the patient. 2. Educated about benefits and side effects of medication and course and prognosis of illness. 3. Advised to continue with Remeron 7.5 mg at bedtime, Zyprexa 10 mg at bedtime. If needed, consider further adjustment of medication. Please feel free to call if any questions, telephone #[phone]. Dictated by... Darci Cortez/swathi TD: 04/22/2017 17:40 JOB #: [id number] Unit #: [id number] #: [id number] Patient: SYLVESTER GUNN CONSULTATION REPORT Page 1 of 1 X Danny Herron MD X CONSULTATION REPORT
--- NOTE | ~2017-04-17 | CO ---
Unit #: [id number] #: [id number] Patient: SYLVESTER ABBOTT [id number] [address] [place], [place] [address] [id number] MR#: [id number] NAME: SYLVESTER ABBOTT. ROOM: 557 Age: 61 Sex: M Admission Date: 04/17/2017 : 1955 Attending Physician: Sang Orozco M.D. Primary Care Physician: Carlitos Dowling M.D. CONSULTATION REPORT REASON FOR CONSULTATION Positive blood cultures. HISTORY OF PRESENT ILLNESS Mr. Abbott is a 61-year-old gentleman with history of major depressive disorder, hypertension, pancreatitis and elevated LFTs who was transfused from [facility] for anorexia. The patient has had blood cultures that were checked, which were both positive for Staphylococcus aureus bacteremia, for which we have been consulted. At this point the patient was admitted to [facility] l[facility] Garza for major depressive disorder with psychosis and suicidal ideation. At this point he denies any type of suicidal ideation or any attempts at suicide. He has been having increasing anorexia with very little p.o. intake. At this point he complains mainly of difficulty walking for the past week, saying that the pain has been so much, typically unbearable and seems to shoot all the way through his arms and through his backside, all down his back, as well as to his lower legs. The patient complains of some shoulder discomfort and also complains of right foot pain, which is so uncomfortable that he is having to tiptoe on his feet just to be able to walk. He denies any type of IV drug use, and he denies any history of IV drug use. Denies any history of pacemaker, port or PICC line placement. He has currently been started on vancomycin, and we have been consulted for positive blood cultures. PAST MEDICAL HISTORY Includes major depressive disorder with psychotic features, essential hypertension, mitral valve prolapse, elevated LFTs, history of pancreatitis, appendectomy, varicocele. ALLERGIES No known allergies. MEDICATIONS Current antibiotics: The patient is on vancomycin and Zyvox. FAMILY HISTORY Noncontributory. SOCIAL HISTORY The patient lives with his . He does have step-kids, and he stopped smoking about 25 years ago. He denies any current alcohol use, although he did have alcohol use in the past. Unit #: [id number] #: [id number] Patient: SYLVESTER ABBOTT REVIEW OF SYSTEMS All negative except for stated in the HPI; mainly the patient's complaints are generalized back pain and shoulder pain, as well as foot pain. Complains of right foot pain and difficulty walking. Complains of some nausea, as well. PHYSICAL EXAM GENERAL: Cachectic. No apparent distress. Patient alert and oriented. CURRENT VITAL SIGNS: Temperature is 98.5. This morning it was 100.3. Pulse is 73, respirations 16, blood pressure 129/83. HEENT: Head is normocephalic. Pupils equal, round and reactive to light and accommodation. NECK: Supple. CARDIOVASCULAR: Regular rate. PULMONARY: Clear to auscultation. Nonlabored. GI: Stomach is soft. Mild tenderness. Positive bowel sounds. SKIN: Right foot with tenderness and erythema, as well as edema. Left shoulder with no erythema, edema and no noted fluid collection. DIAGNOSTIC STUDIES DIAGNOSTIC IMAGES: CT abdomen and pelvis - No acute findings in the abdomen or pelvis. The bladder is significantly distended with urine. Chest x-ray with no active disease. CT of the head with mild generalized atrophy and mild probable sequelae of small vessel disease. LABORATORY DATA: Glucose is 113, BUN 27, creatinine 0.9, sodium 136, potassium 3.5, AST 102, ALT 115, amylase 51. CRP is 20.9. Urine tox screen is negative. UA with 0-2 white cells, no bacteria. Blood cultures - 2 of 2 with Staphylococcus aureus. Pending repeat blood cultures, pending C. diff. ASSESSMENT Staphylococcus aureus bacteremia of unclear etiology. Will rule out any type of infective endocarditis. There is a two-D echo that has already been ordered. Will check a CT scan of the patient's right foot to rule out any septic arthritis or deep abscess infections. The patient denies any type of IV drug use, and drug screen is negative. Chest x-ray is also negative, and CT of the abdomen and pelvis shows no acute findings. At this point, will continue vancomycin. Will discontinue Zyvox and follow up on echo. Will ask pharmacy to continue dosing vancomycin, and will also check a CT of his right foot with IV contrast to (1) erythema and tenderness to rule out any type of abscess. Will check a CBC and BMP in the a.m. and will discuss plan with Dr. Grider. Further recommendations to come from him. Dictated by... Jaqueline Branham APRN for Darci Landers/ryanne TD: 04/19/2017 11:31 Unit #: [id number] #: [id number] Patient: LUIS ASYLVESTER Cyndi JOB #: [id number] CONSULTATION REPORT Page 1 of 1 X X CONSULTATION REPORT
--- NOTE | ~2017-04-17 | EKG ---
PATIENT: SYLVESTER GUNN UNIT #: [id number] Ventricular Rate: 85 BPM Atrial Rate: 85 BPM P-R Interval: 134 ms QRS Duration: 84 ms Q-T Interval: 372 ms QTC Calculation(Bezet): 442 ms P [place]: 53 degrees Calculated R [place]: 25 degrees Calculated T [place]: 53 degrees Diagnosis Line: Normal sinus rhythm Diagnosis Line: Moderate voltage criteria for LVH, may be normal Diagnosis Line: variant Diagnosis Line: Borderline ECG Diagnosis Line: Diagnosis Line: Confirmed by HUONG TSANG MD ([id number]) on Diagnosis Line: 04/17/2017 9:49:26 PM INTERPRETING MD: JOSE RAUL
[2017-04-17 17:14] LABS: BASOPHIL% 0.1 % (0-2.5); HEMATOCRIT 36.1 % (38.0-50.0); HEMOGLOBIN 11.9 gm/dL (13.0-16.0); LYMPHOCYTE# 0.6 X10e3 (1.0-3.5); LYMPHOCYTE% 2.7 % (17.0-45.0); MEAN CELL VOLUME 92.2 FL (83-96); MEAN CORPUSCULAR HEMOGLOBIN 30.4 PG (28-34); MEAN PLATELET VOLUME 7.5 FL (6.5-11.5); MONOCYTE# 1.7 X10e3 (0-1.0); NEUTROPHIL# 18.8 X10e3 (1.5-7.1); NEUTROPHIL% 89.2 % (40-75); PLATELET COUNT 293 X10e3 (140-420); RED BLOOD COUNT 3.92 X10e (3.90-5.60); RED CELL DISTRIBUTION WIDTH 13.5 % (11.0-15.5); WHITE BLOOD COUNT 21.1 X10e3 (4.0-10.5)
[2017-04-17 17:16] LABS: DIFF IND YES
[2017-04-17 17:17] LABS: PROTHROMBIN TIME (PATIENT) 10.7 SECONDS (10.0-11.7)
[2017-04-17 17:29] LABS: ALBUMIN SERUM 2.9 g/dL (3.5-5.0); BILIRUBIN, DIRECT 0.2 mg/dL (0.0-0.2); BILIRUBIN,INDIRECT 0.6 mg/dL (0.0-0.9); BILIRUBIN,TOTAL 0.8 mg/dL (0.2-2.0); BUN/CREATININE RATIO 48.75; CALCIUM SERUM 8.8 mg/dL (8.4-10.2); CREATININE SERUM 1.6 mg/dL (0.6-1.4); GLOM FILT RATE Estimated 46.2 mL/min (>60); POTASSIUM 3.8 mmol/L (3.5-5.1); PROTEIN TOTAL SERUM 7.1 g/dL (6.0-8.3)
[2017-04-17 17:35] LABS: PLATELET ESTIMATE NORMAL (NORMAL); RBC NORMAL YES
[2017-04-17 19:35] LABS: URBCS1 AUWI 0-2 /[HPF] (0-2); URINE APPEARANCE CLEAR; URINE BACTERIA AUWI NEG (NEGATIVE); URINE BILIRUBIN NEG (NEG); URINE BLOOD TRACE (NEG); URINE COLOR YELLOW; URINE GLUCOSE NEG (NEG); URINE KETONE NEG (NEG); URINE LEUKOCYTE ESTERASE NEG (NEG); URINE NITRATE NEG (NEG); URINE PH 5.5 (5-8); URINE PROTEIN 1+ (NEG); URINE SOURCE CLEAN CATCH; URINE SPECIFIC GRAVITY 1.022 (1.003-1.035); URINE SQUAMOUS EPITHELIAL CELL OCC /[HPF]; URINE UROBILINOGEN 0.2 MG/DL (NEG); UWBCS1 AUWI 0-2 (0-5)
[2017-04-17 19:37] LABS: CULTURE INDICATED? NO
[2017-04-17 20:32] LABS: POC - CKMB <1.0 ng/mL (0.0-7.9); POC - TROPONIN <0.05 ng/mL (<=0.05)
[2017-04-17] MEDS ORDERED: ZESTRIL10 M1 PO (22:54)
[2017-04-17] MEDS ORDERED: INDERAL20 MG PO (22:54)
[2017-04-17] MEDS ORDERED: PROTONIX40 M1 PO (22:55)
[2017-04-17] MEDS ORDERED: HCTZ PO (22:55)
[2017-04-17] MEDS ORDERED: CREON DR 12,001 EAC2 PO (22:56)
[2017-04-17] MEDS ORDERED: ZYPREXA10 MG PO (22:56)
[2017-04-17] MEDS ORDERED: ZOLOFT100 MG PO (22:57)
[2017-04-17 23:46] LABS: POC - CKMB <1.0 ng/mL (0.0-7.9); POC - TROPONIN <0.05 ng/mL (<=0.05)
[2017-04-18 18:23] LABS: THYROID STIMULATING HORMONE 1.01 uIU/ml (0.34-5.60)
[2017-04-18 18:30] LABS: FREE THYROXIN (T4) 1.37 ng/dL (0.58-1.64)
[2017-04-18 21:32] LABS: HEMATOCRIT 35.3 % (38.0-50.0); HEMOGLOBIN 11.8 gm/dL (13.0-16.0); MEAN CELL VOLUME 92.3 FL (83-96); MEAN CORPUSCULAR HEMOGLOBIN 30.7 PG (28-34); MEAN CORPUSCULAR HGB CONC 33.3 g/dL (30-36); RED BLOOD COUNT 3.83 X10e (3.90-5.60); RED CELL DISTRIBUTION WIDTH 13.9 % (11.0-15.5); WHITE BLOOD COUNT 20.9 X10e3 (4.0-10.5)
[2017-04-18 21:43] LABS: ALBUMIN SERUM 2.4 g/dL (3.5-5.0); BILIRUBIN,TOTAL 1.2 mg/dL (0.2-2.0); BUN/CREATININE RATIO 33.33; CALCIUM SERUM 8.3 mg/dL (8.4-10.2); CREATININE SERUM 0.9 mg/dL (0.6-1.4); GLOM FILT RATE Estimated 92.5 mL/min (>60); POTASSIUM 3.7 mmol/L (3.5-5.1); PROTEIN TOTAL SERUM 6.5 g/dL (6.0-8.3)
[2017-04-18 22:03] LABS: PROCALCITONIN 0.82 NG/ML
[2017-04-19 05:53] LABS: HEMATOCRIT 34.4 % (38.0-50.0); HEMOGLOBIN 11.5 gm/dL (13.0-16.0); MEAN CELL VOLUME 92.9 FL (83-96); MEAN CORPUSCULAR HEMOGLOBIN 30.9 PG (28-34); MEAN CORPUSCULAR HGB CONC 33.3 g/dL (30-36); MEAN PLATELET VOLUME 8.1 FL (6.5-11.5); RED BLOOD COUNT 3.7 X10e (3.90-5.60); RED CELL DISTRIBUTION WIDTH 13.8 % (11.0-15.5); WHITE BLOOD COUNT 18.3 X10e3 (4.0-10.5)
[2017-04-19 06:19] LABS: CALCIUM SERUM 8.2 mg/dL (8.4-10.2); CREATININE SERUM 0.9 mg/dL (0.6-1.4); GLOM FILT RATE Estimated 92.5 mL/min (>60); POTASSIUM 3.5 mmol/L (3.5-5.1)
[2017-04-20 05:26] LABS: HEMATOCRIT 31.8 % (38.0-50.0); HEMOGLOBIN 10.6 gm/dL (13.0-16.0); MEAN CELL VOLUME 92.3 FL (83-96); MEAN CORPUSCULAR HEMOGLOBIN 30.7 PG (28-34); MEAN CORPUSCULAR HGB CONC 33.2 g/dL (30-36); MEAN PLATELET VOLUME 7.6 FL (6.5-11.5); RED BLOOD COUNT 3.45 X10e (3.90-5.60); RED CELL DISTRIBUTION WIDTH 13.8 % (11.0-15.5); WHITE BLOOD COUNT 15.4 X10e3 (4.0-10.5)
[2017-04-20 07:00] LABS: ALBUMIN SERUM 1.8 g/dL (3.5-5.0); BILIRUBIN,TOTAL 0.3 mg/dL (0.2-2.0); BUN/CREATININE RATIO 23.75; CREATININE SERUM 0.8 mg/dL (0.6-1.4); GLOM FILT RATE Estimated 97.1 mL/min (>60); MAGNESIUM 1.5 mg/dL (1.6-3.0); POTASSIUM 3.4 mmol/L (3.5-5.1); PROTEIN TOTAL SERUM 5.3 g/dL (6.0-8.3)
[2017-04-21 04:07] LABS: MAGNESIUM 1.8 mg/dL (1.6-3.0); POTASSIUM 3.6 mmol/L (3.5-5.1)
[2017-04-21 15:15] LABS: HA AB IGM (HEPPAN) Nonreactive (()); HB CORE AB IGM (HEPPAN) Nonreactive (Nonreactive); HB S AG (HEPPAN) Nonreactive (Nonreactive); HEP C AB (HEPPAN) Nonreactive (Nonreactive); HEP C AB SIGNAL TO CUTOFF 0.02 ratio (<1.00)
[2017-04-22 07:06] LABS: MAGNESIUM 1.8 mg/dL (1.6-3.0); POTASSIUM 3.5 mmol/L (3.5-5.1)
[2017-04-23 05:12] LABS: HEMOGLOBIN 9.8 gm/dL (13.0-16.0); MEAN CELL VOLUME 93.2 FL (83-96); MEAN CORPUSCULAR HEMOGLOBIN 30.4 PG (28-34); MEAN CORPUSCULAR HGB CONC 32.6 g/dL (30-36); MEAN PLATELET VOLUME 7.6 FL (6.5-11.5); RED BLOOD COUNT 3.22 X10e (3.90-5.60); WHITE BLOOD COUNT 12.2 X10e3 (4.0-10.5)
[2017-04-23 07:05] LABS: BUN/CREATININE RATIO 11.11; CALCIUM SERUM 7.7 mg/dL (8.4-10.2); CREATININE SERUM 0.9 mg/dL (0.6-1.4); GLOM FILT RATE Estimated 92.5 mL/min (>60); POTASSIUM 3.3 mmol/L (3.5-5.1)
[2017-04-26 09:16] LABS: MAGNESIUM 1.9 mg/dL (1.6-3.0); POTASSIUM 4.1 mmol/L (3.5-5.1)
[2017-04-27 10:50] LABS: HEMATOCRIT 33.1 % (38.0-50.0); MEAN CELL VOLUME 93.6 FL (83-96); MEAN CORPUSCULAR HEMOGLOBIN 31.2 PG (28-34); MEAN CORPUSCULAR HGB CONC 33.4 g/dL (30-36); MEAN PLATELET VOLUME 7.2 FL (6.5-11.5); RED BLOOD COUNT 3.53 X10e (3.90-5.60); RED CELL DISTRIBUTION WIDTH 14.3 % (11.0-15.5); WHITE BLOOD COUNT 9.6 X10e3 (4.0-10.5)
[2017-04-27 11:03] LABS: PARTIAL THROMBOPLASTIN TIME 28.2 SECONDS (23.5-31.3); PROTHROMBIN TIME (PATIENT) 10.7 SECONDS (10.0-11.7)
[2017-04-27 11:22] LABS: ALBUMIN SERUM 2.3 g/dL (3.5-5.0); BILIRUBIN,TOTAL 0.5 mg/dL (0.2-2.0); CALCIUM SERUM 8.4 mg/dL (8.4-10.2); GLOM FILT RATE Estimated 81.5 mL/min (>60); POTASSIUM 3.8 mmol/L (3.5-5.1); PROTEIN TOTAL SERUM 6.3 g/dL (6.0-8.3)
[2017-04-27 15:22] LABS: CHOLESTEROL 170 mg/dL (0-200); HDL CHOLESTEROL 35 mg/dL (29-75); LDL CHOLESTEROL 109 mg/dL (-130); LDL/HDL RATIO 3 RATIO (0-4); TRIGLYCERIDES 129 mg/dL (10-160)
[2017-04-27 18:43] LABS: HEMOGLOBIN 10.5 gm/dL (13.0-16.0); MEAN CORPUSCULAR HEMOGLOBIN 31.3 PG (28-34); MEAN PLATELET VOLUME 6.8 FL (6.5-11.5); RED BLOOD COUNT 3.37 X10e (3.90-5.60); RED CELL DISTRIBUTION WIDTH 14.2 % (11.0-15.5); WHITE BLOOD COUNT 10.3 X10e3 (4.0-10.5)
[2017-04-27 19:01] LABS: CALCIUM SERUM 8.2 mg/dL (8.4-10.2); GLOM FILT RATE Estimated 81.5 mL/min (>60); POTASSIUM 3.9 mmol/L (3.5-5.1)
[2017-04-28 06:44] LABS: HEMATOCRIT 30.3 % (38.0-50.0); HEMOGLOBIN 10.2 gm/dL (13.0-16.0); MEAN CELL VOLUME 92.4 FL (83-96); MEAN CORPUSCULAR HEMOGLOBIN 31.2 PG (28-34); MEAN CORPUSCULAR HGB CONC 33.7 g/dL (30-36); MEAN PLATELET VOLUME 7.5 FL (6.5-11.5); RED BLOOD COUNT 3.28 X10e (3.90-5.60); RED CELL DISTRIBUTION WIDTH 14.6 % (11.0-15.5); WHITE BLOOD COUNT 10.5 X10e3 (4.0-10.5)
[2017-04-28 06:57] LABS: PARTIAL THROMBOPLASTIN TIME 37.3 SECONDS (23.5-31.3); PROTHROMBIN TIME (PATIENT) 10.4 SECONDS (10.0-11.7)
[2017-04-28 07:16] LABS: BUN/CREATININE RATIO 11.11; CALCIUM SERUM 8.3 mg/dL (8.4-10.2); CREATININE SERUM 0.9 mg/dL (0.6-1.4); GLOM FILT RATE Estimated 92.5 mL/min (>60); POTASSIUM 3.8 mmol/L (3.5-5.1)
[2017-04-29] MEDS ORDERED: REMERON PO (16:17)
[2017-04-29] MEDS ORDERED: ACETAMINOPHEN650 M1 PO (16:18)
[2017-04-29] MEDS ORDERED: LOPRESSOR PO (16:19)
[2017-04-29] MEDS ORDERED: HYDROXYZINE PAM25 MG PO (16:19)
[2017-04-29] MEDS ORDERED: CREON 101 CA1 PO (16:20)
[2017-04-29] MEDS ORDERED: SM THERAPEUTIC1 EACH PO (16:21)
[2017-04-29] MEDS ORDERED: DAPTOMYCIN500 MG IV (16:28)
[2017-04-29] MEDS ORDERED: PROTONIX PO (16:35)
== END 2017-04-29 17:45 | disposition home health service (06) | DRG 853 ==
LOC: CED 16:27 → C5B 22:00 → CEDOF 22:00 → CED 22:21 → CEDOF 04-18 → C5B 04-18
PROVIDERS: Emergency Medicine; Family Medicine; Internal Medicine; Internal Medicine Cardiovascular Disease
PROC: 0J9Q0ZZ Drainage of Right Foot Subcutaneous Tissue and Fascia, Open Approach (ICD-10-PCS; principal; 2017-04-17)
PROC: B246YZZ Ultrasonography of Right and Left Heart using Other Contrast (ICD-10-PCS; 2017-04-19)
PROC: B246ZZ4 Ultrasonography of Right and Left Heart, Transesophageal (ICD-10-PCS; 2017-04-21)
PROC: 02HV33Z Insertion of Infusion Device into Superior Vena Cava, Percutaneous Approach (ICD-10-PCS; 2017-04-27)
PROC: B518YZA Fluoroscopy of Superior Vena Cava using Other Contrast, Guidance (ICD-10-PCS; 2017-04-27)
PROC: B548ZZA Ultrasonography of Superior Vena Cava, Guidance (ICD-10-PCS; 2017-04-27)
PROC: 4A023N7 Measurement of Cardiac Sampling and Pressure, Left Heart, Percutaneous Approach (ICD-10-PCS; 2017-04-28)
PROC: B211YZZ Fluoroscopy of Multiple Coronary Arteries using Other Contrast (ICD-10-PCS; 2017-04-28)
PROC: B215YZZ Fluoroscopy of Left Heart using Other Contrast (ICD-10-PCS; 2017-04-28)
DX: A41.01 Sepsis due to Methicillin susceptible Staphylococcus aureus (principal); K85.90 Acute pancreatitis without necrosis or infection, unspecified; I21.4 Non-ST elevation (NSTEMI) myocardial infarction; I44.2 Atrioventricular block, complete; N17.9 Acute kidney failure, unspecified; E44.0 Moderate protein-calorie malnutrition; L02.611 Cutaneous abscess of right foot; L03.115 Cellulitis of right lower limb; F33.3 Major depressive disorder, recurrent, severe with psychotic symptoms; Z68.1 Body mass index [BMI] 19.9 or less, adult; K86.0 Alcohol-induced chronic pancreatitis; I47.1 Supraventricular tachycardia; E86.0 Dehydration; I10 Essential (primary) hypertension; Z87.891 Personal history of nicotine dependence; I34.1 Nonrheumatic mitral (valve) prolapse; R33.9 Retention of urine, unspecified
CPT/HCPCS: 36415; 51701; 70450; 71010; 73110; 73130; 73701; 74176; 76937; 77001; 80048; 80053; 80061; 80074; 80076; 81003; 82140; 82308; 82550; 82553; 82947; 83605; 83735; 84132; 84439; 84443; 84484; 85025; 85027; 85610; 85730; 86140; 86705; 86707; 86850; 86900; 86901; 87040; 87070; 87075; 87077; 87186; 87205; 87340; 87350; 93005; 93306; 93312; 96361; 96365; 97116; 97161; 99152; 99285; C1751; C1769; C1887; C1894; G8978-GP; G8979-GP; G8980-GP; J0282; J0696; J0878; J1100; J1642; J1644; J1650; J1885; J2020; J2250; J2270; J2765; J3010; J3370; J3475; Q9967

== ENCOUNTER → 2017-05-18 | Outpatient (CLI) | payer BC ==
[~2017-05-18] MED LIST: ACETAMINOPHEN650 M1 PO; CREON 101 CA1 PO; CREON DR 12,001 EAC2 PO; DAPTOMYCIN500 MG IV; HCTZ PO; HYDROXYZINE PAM25 MG PO; INDERAL20 MG PO; LOPRESSOR PO; PROTONIX PO; PROTONIX40 M1 PO; REMERON PO; SM THERAPEUTIC1 EACH PO; ZESTRIL10 M1 PO; ZOLOFT100 MG PO; ZYPREXA10 MG PO
--- NOTE | ~2017-05-18 | MR145 ---
[facility] A Service of [facility] RADIOLOGY TEXT RESULTS PATIENT: SYLVESTER CLARK [facility] [birth year] UNIT #: [id number] AGE: [address]: Leonides Nieto MD SEX: M ORDER DR: [id number] [facility] [address] [place], [place] [address] [id number] MR#: [id number] Acc #: [id number] NAME: SYLVESTER CLARK : 1955 SEX: M STUDY DATE/TIME: 05/18/2017 7:34 UNIT: [facility] ROOM: STUDY DESCRIPTION: MR MRCP WWo Contrast Attending Physician: Leonides Nieto M.D. Referring Physician: Leonides Nieto M.D. Ordering Physician: Leonides Nieto M.D. Primary Care Physician: Carlitos Dowling M.D. MRI CENTER REPORT This report is preliminary unless electronic signature is present. EXAM MRI abdomen with and without contrast MRCP protocol. INDICATIONS Chronic pancreatitis. Weakness and loss of appetite and weight loss with generalized abdominal pain since 04/17/2017. PROCEDURE Multiplanar, multisequence MR imaging of the abdomen prior to and following 11 mL of MultiHance. COMPARISON CT from 04/18/2017. FINDINGS Abdomen without contrast: The liver has normal size morphology. No hepatic fat or iron deposition. Gallbladder, biliary system unremarkable. Pancreatic duct nondilated. The pancreas has normal signal. No evidence for acute or chronic pancreatitis. The spleen, kidneys, adrenal glands and bowel loops have normal signal. Abdomen with contrast: No abnormal enhancement in the abdomen. IMPRESSION 1. Negative MRI of the abdomen with MRCP. 2. No evidence for acute or chronic pancreatitis. No biliary dilation. Dictated by... Reynaldo Larsen M.D. THIS IS AN ELECTRONICALLY VERIFIED REPORT Reynaldo Larsen M.D. at 05/19/2017 12:09 PM [facility] A Service of [facility] RADIOLOGY TEXT RESULTS PATIENT: SYLVESTER CLARK [facility] [birth year] UNIT #: [id number] AGE: [address]: Leonides Nieto MD SEX: M ORDER DR: LISA/dina TD: 05/18/2017 14:23 JOB #: [id number] MRI CENTER REPORT Page 1 of 1 COPY
== END | disposition home or self-care (01) ==
LOC: CMRI 07:00
DX: R10.9 Unspecified abdominal pain (principal); R63.4 Abnormal weight loss; Z88.2 Allergy status to sulfonamides
CPT/HCPCS: 74183; A9577